=== PATIENT | female | born 1950 | race Caucasian/White ===

== ENCOUNTER → 2020-07-20 12:04 | Outpatient (CLI) | payer MEDICARE, SELFPAY ==
--- NOTE | ~2020-07-20 | MM_ITS ---
EXAMINATION: MM screening phong BI w rachel HISTORY: Screening TECHNIQUE: Craniocaudal and mediolateral oblique 3-D tomosynthesis images were obtained and synthetic 2-D images were generated. CAD analysis was submitted and interpreted. COMPARISON: Comparison to multiple prior studies sequentially, with oldest reviewed study dated 05/31. BREAST PARENCHYMAL COMPOSITION: There are scattered areas of fibroglandular density. FINDINGS: There is no evidence of suspicious mass, calcification, or architectural distortion to sugg est malignancy in either breast. There has been no suspicious interval change. IMPRESSION: 1. No mammographic evidence of malignancy. 2. Recommend routine screening mammography in one year. BI-RADS Category 1: Negative Reviewed, dictated and finalized at location A. F DEVELOPMENT NURSE
== END ==
PROVIDERS: PCP Family Medicine; Visit Provider Family Medicine
DX: Z12.31 Encounter for screening mammogram for malignant neoplasm of breast (principal)
CPT/HCPCS: 77063; 77067

== ENCOUNTER → 2021-07-23 10:50 | Outpatient (CLI) | payer MEDICARE, SELFPAY ==
--- NOTE | ~2021-07-23 | DEXA_ITS ---
Bone Density Report Name: Lisa Barroso Age: 70 Sex: Female Ethnicity: White Date of : 1950 Indication: osteopenia; hysterectomy; postmenopausal Referring Provider: Rios Kline Study: Bone densitometry was performed. Exam Date: July 23, 2021 Accession number: [id number] Bone Density: Region BMD T-score Z-score Classification AP Spine (L1, L4) 0.835 -1.8 0.4 Osteopenia Femoral Neck (Left) 0.631 -2.0 -0.1 Osteopenia Total Hip (Left) 0.922 -0.2 1.4 Normal Femoral Neck (Right) 0.711 -1.2 0.7 Osteopenia Total Hip (Right) 0.900 -0.3 1.3 Normal Total Hip Mean 0.911 -0.3 1.4 Normal World Health Organization criteria for BMD impression classify patients as: Normal (T-score at or above -1.0), Osteopenia (T-score between -1.0 and -2.5), or Osteoporosis (T-score at or below -2.5). 10-year Fracture Risk(1): Major Osteoporotic Fracture 11% Hip Fracture 2.2% Reported Risk Factors: [place] (), Neck BMD=0.631, BMI=32.2 (1) FRAX(R) Version 3.08. Fracture probability calculated for an untreated patient. Fracture probability may be lower if the patient has received treatment. Previous Exams: Region Exam Age BMD T-score BMD Change BMD Change Date g/cm2 vs Baseline vs Previous AP Spine(L1, L4) 07/23/2021 70 0.835 -1.8 0.011 0.011 06/15/2018 67 0.825 -1.9 Total Hip(Left) 07/23/2021 70 0.922 -0.2 -0.024 -0.024 06/15/2018 67 0.946 0.0 Total Hip(Right) 07/23/2021 70 0.900 -0.3 -0.043* -0.043* 06/15/2018 67 0.944 0.0 *Denotes significance at 95% confidence level, LSC for AP Spine = 0.022 g/cm2, LSC for Total Hip = 0.027 g/cm2 Clinical Information Provided by Patient: Has the following medical conditions: Hysterectomy Patient maximum height was 63 Menopause Age: 31 Does not regularly consume dairy products Drinks caffeinated beverages Onset of menses at age 11 Number of children 2 Impression: The patient has low bone mass, based on the Left Femoral Neck T-score. The patient has an estimated ten-year risk of hip fracture of 2.2% and an estimated ten-year risk of major fracture of 11%, based on the WHO FRAX algorithm. The BMD for the Total Hip(Right) decreased, changing by -0.043 since the last DXA exam. Discussion: BONE DENSITY IS LOW AT ONE OR MORE SKELETAL SITES. This patient's lowest T-score is low at one or more skeletal sites. It meets the World He
== END ==
PROVIDERS: PCP Family Medicine; Visit Provider Family Medicine
DX: Z78.0 Asymptomatic menopausal state (principal); M85.88 Other specified disorders of bone density and structure, other site; M85.852 Other specified disorders of bone density and structure, left thigh; M85.851 Other specified disorders of bone density and structure, right thigh
CPT/HCPCS: 77080

== ENCOUNTER → 2021-08-21 11:31 | Outpatient (CLI) | payer MEDICARE, SELFPAY ==
--- NOTE | ~2021-08-21 | MM_ITS ---
EXAMINATION: MM screening phong BI w rachel HISTORY: Screening TECHNIQUE: Craniocaudal and mediolateral oblique 3-D tomosynthesis images were obtained and synthetic 2-D images were generated. CAD analysis was submitted and interpreted. COMPARISON: Comparison to multiple prior studies sequentially, with oldest reviewed study dated 05/31. BREAST PARENCHYMAL COMPOSITION: There are scattered areas of fibroglandular density. FINDINGS: There is no evidence of suspicious mass, calcification, or architectural distortion to sugg est malignancy in either breast. There has been no suspicious interval change. IMPRESSION: 1. No mammographic evidence of malignancy. 2. Recommend routine screening mammography in one year. BI-RADS Category 1: Negative Reviewed, dictated and finalized at location A. ULAR SAWYER STONE
== END ==
PROVIDERS: PCP Family Medicine; Visit Provider Family Medicine
DX: Z12.31 Encounter for screening mammogram for malignant neoplasm of breast (principal)
CPT/HCPCS: 77063; 77067

== ENCOUNTER 2021-08-29 01:13 | Day surgery (SDC) | payer MEDICARE, SELFPAY ==
[2021-08-28 14:02] VITALS: BMI 30.8
[2021-08-29] VITALS (12 sets, daily range): BP systolic 112–157; BP diastolic 45–87; PULSE 72–125; RESP 13–20; TEMP 36.7; O2SAT 94–98; BMI 30.8
[2021-08-29 07:34] LABS: Basophils Percent Auto 0.4 % (0.2-1.2); Eosinophils Absolute Auto 0.1 K/mm3 (0-0.3); Eosinophils Percent Auto 0.9 % (0-4.4); Hematocrit 41.2 % (37.0-47.0); Hemoglobin 13.7 g/dL (12.0-15.0); Immature Granulocyte Absolute 0.03 K/mm3 (0.00-0.031); Immature Granulocyte Percent A 0.3 % (0-0.5); Lymphocytes Absolute Auto 3.19 K/mm3 (0.9-3.2); Mean Corpuscular HGB Conc 33.3 g/dl (32-36); Mean Corpuscular Hemoglobin 31.6 pg (26-34); Mean Corpuscular Volume 95.2 fl (80-100); Monocytes Absolute Auto 0.8 K/mm3 (0.1-0.6); Neutrophils Absolute Auto 5.8 K/mm3 (1.3-6.7); Neutrophils Percent Auto 58.4 % (45.5-73.1); Platelet Count Result 329 k/mm3 (150-375); Red Blood Count 4.33 M/mm3 (4.2-5.4); Red Cell Distribution Width 12.2 % (11.5-14.5)
[2021-08-29 07:47] LABS: Anion Gap 9 mmol/L (8-16); Blood Urea Nitrogen 18 mg/dL (7-17); Calcium 10.1 mg/dL (8.4-10.2); Carbon Dioxide 27 mmol/L (22-30); Chloride 97 mmol/L (98-107); Estimated CRCL calculation 56 ml/min; Estimated Glomerular Filt Rate > 60; Glucose 158 mg/dL (65-110); Potassium 4.1 mmol/L (3.4-5.0); Sodium 133 mmol/L (137-145)
--- NOTE | 2021-08-29 08:44 | WPDHPUPDATE1 ---
History and Physical Update Update Date/Time: 08/29/21 08:44 History and Physical has been reviewed, including an updated exam of the patient. There are NO changes in the patient's condition. Risks, benefits, and alternatives have been discussed and questions answered. Patient agrees to proceed with procedure.
--- NOTE | 2021-08-29 08:44 | WPDMODSED ---
Moderate Sedation Note-Pt Data Patient Data Diagnosis: Abnormal stress test Present Complaint: none Procedure to be performed/Plan: left heart catheterization with selective left and right coronary angiography with left ventriculography and hemodynamics and possible percutaneous intervention and stent implantation. Allergies Allergy/AdvReac Type Severity Reaction Status Date / Time hydrocodone AdvReac Mild Nausea and Verified 08/28/21 13:59 Vomiting Home Medications Medication Instructions Recorded Confirmed Type indapamide 2.5 mg tablet 2.5 mg PO DAILY #90 tablet 05/11/21 08/28/21 Rx metformin 500 mg tablet,extended 2,000 mg PO QPM #360 tablet 05/11/21 08/28/21 Rx release 24 hr pravastatin 20 mg tablet 20 mg PO DAILY #90 tablet 05/11/21 08/28/21 Rx valsartan 80 mg tablet 80 mg PO DAILY #90 tablet 05/11/21 08/28/21 Rx aspirin 81 mg PO DAILY 08/28/21 08/29/21 History diltiazem HCl 120 mg PO DAILY 08/28/21 08/28/21 History Current Medications: Active Medications Sodium Chloride (Normal Saline Iv) 500 mls @ 100 mls/hr IV CONT .Q5H NAVIN Sedation/Anesthesia: No previous sedation/anesthesia problems (including family history). [facility] Past Medical History Medical History Cough Fatty liver HLD (hyperlipidemia) HTN (hypertension), benign MEETA (obstructive sleep apnea) Type 2 diabetes mellitus without complications Family History Family History Mother Diabetes mellitus Hypertension Family history of cardiovascular disease Father Family history of cardiovascular disease Social History Social History Smoking status: Never smoker Second hand tobacco smoke exposure: No Alcohol intake: current Drinks per week: 0 Alcohol use details: rare Substance use: never Substance use type: does not use Living arrangements: with family Gender identity (if verbalized by the patient): Female Sexual Orientation (if Verbalized by the Patient): Straight or Heterosexual Mod Sed Physical Exam Physical Exam Pre Procedural Exam: Normal: Appearance, Eyes, Ears, Nose, Neck ( supple, normal range of motion), Throat ( posterior hypopharynx clear, nonerythematous), Airway ( normal anatomy, no obstruction), Lungs ( Clear to auscultation bilaterally), Heart Size, Heart Rate, Heart Rhythm, Neuro Exam, Abdomen, Liver, Extremities and Skin Hours since solid foods: 12 Hours since liquid intake: 12 Mallampati Classification: class III Internal Medicine - PN: Obj Da Vital Signs Vital Signs: Vital Signs - 24 hr 08/29/21 07:29 Temperature 36.7 C Respiratory Rate 13 Blood Pressure 157/64 H Pulse Oximetry 98 Meds/Results Medications: Active Medications Generic Name Dose Route Start Last Admin Trade Name Freq PRN Reason Stop Dose Admin Sodium Chloride 500 mls @ 100 mls/hr 08/29/21 07:00 Normal Saline Iv IV CONT .Q5H NAVIN Labs CBC & Chem 7: 08/29/21 07:18 08/29/21 07:18 Labs: Laboratory Results - last 24 hr 08/29/21 08/29/21 07:18 07:18 WBC 10.0 RBC 4.33 Hgb 13.7 Hct 41.2 MCV 95.2 MCH 31.6 MCHC 33.3 RDW 12.2 Plt Count 329 MPV 10.0 Immature Gran % (Auto) 0.3 Neut % (Auto) 58.4 Lymph % (Auto) 32.0 [place] % (Auto) 8.0 Eos % (Auto) 0.9 Baso % (Auto) 0.4 Lymph # (Auto) 3.19 [place] # (Auto) 0.8 H Eos # (Auto) 0.1 Baso # (Auto) 0.0 Abs Immat Gran (auto) 0.03 Absolute Neuts (auto) 5.8 Absolute Nucleated RBC 0.0 Nucleated RBC % 0.0 Sodium 133 L Potassium 4.1 Chloride 97 L Carbon Dioxide 27 Anion Gap 9 BUN 18 H Creatinine 0.80 Estim Creat Clear Calc 56 Estimated GFR > 60 Glucose 158 H Calcium 10.1 ASA Classification/Sedation ASA Classification/Sedation ASA Class: III Emergent: No Risks: Risks, benefits a
--- NOTE | 2021-08-29 08:46 | PM.OP ---
Procedure Note - Brief Procedure Note - Brief Date of procedure: 08/29/21 Pre-op diagnosis: abn stress test and echo Post-op diagnosis: same Procedure performed: left heart catheterization with selective left and right coronary angiography with left ventriculography and hemodynamics Description of procedure: BRIEF HISTORY OF PRESENT ILLNESS: Patient is a pleasant 70-year-old female with a past medical history significant for hypertension, dyslipidemia, diabetes mellitus, family history premature atherosclerosis was seen for abnormal EKG who underwent noninvasive ischemic testing which revealed moderate size mild anteroseptal mega-infarct ischemia in the mid anteroseptal wall with fixed small mild apical anterior infarction without ischemia, EF 67% hypokinesis of the mid anterior, mid anteroseptal and apical anterior apical septal parr referred for left heart catheterization for delineation of her coronary anatomy. PROCEDURES PERFORMED: 1. Left heart catheterization 2. Selective left and right coronary angiography 3. Left ventriculography and hemodynamics 4. Moderate/conscious sedation administration CATHETERS UTILIZED: Left coronary system- 5 Burkinan JL4 catheter Right coronary system- 5 Burkinan JR4 catheter Left ventriculography and hemodynamics- 5 Burkinan angled pigtail catheter PROCEDURE IN DETAIL: After verbal and written informed consent was obtained the patient, risks, benefits, and alternatives explained in detail the patient agreed to proceed with the plan of care as outlined above. The patient was subsequently brought to the cardiac catheterization lab, placed on the cardiac catheterization table, and prepped and draped in the usual sterile fashion. Utilizing approximately 17cc of 1% subcutaneous Lidocaine, the right groin was then locally anesthetized. Utilizing the modified Seldinger technique, a 5 Burkinan arterial vascular access sheath was inserted in the right common femoral artery easily and without complications. Through this access, coronary angiography was subsequently obtained in multiple standard re-projections. Following this, a 5 Burkinan angled pigtail catheter was advanced retrograde across aortic valve into the cavity of the left ventricle. Left ventriculography was performed and pullback across aortic valve was subsequently recorded. The vascular access sheath and angiographic catheters were flushed before and after catheter exchanges. At the conclusion of the diagnostic portion of the procedure, all angiographic guidewires and catheters were removed and the 5 Burkinan arterial vascular access sheath was then pulled and satisfactory hemostasis was achieved using manual compression. There no complications noted at the conclusion of the diagnostic portion of the study. MODERATE SEDATION/ANESTHESIA ADMINISTRATION: Patient reports no prior problems with sedation/anesthesia. Please see pre-sedation noted for physical examination documentation. Sedation start time was 0853 and end time was 0929 for a total intra-service/procedure face-face time of 36 minutes. A total of 2 mg intravenous Versed and a total of 50 mcg intravenous Fentanyl in multiple divided doses was administered for moderate sedation. Moderate sedation was administered by qualified/certified observer Kacey Sheppard RN under my supervision with intra-procedure [id number] observation and management throughout the entirety of the procedure. There were no other issues or complications and patient tolerated the procedure well. See post-anesthesia documentation. Implants: N/A Anesthesia: local and other ( moderate/conscious sedation) Surgeon: Jon Bird MD Drains: No Packing: No Pathology: none sent Complications: No immediate complications Condition: stable Findings: CORONARY ANGIOGRAPHY: The LEFT MAIN arose from the left coronary cusp and revealed a smooth 10% distal stenosis. The left main then trifurcated into the left anterior descendin
--- NOTE | 2021-08-29 14:05 | SUR.PHASEII ---
Pt assisted up to chair. No change in vital signs or groins site.
--- NOTE | 2021-08-29 15:14 | SUR.PHASEII ---
1420-pt ambulated into bathroom. Pt continues to do well. okay for discharge 1430- Discharge instruction reviewed with pt and . All questions answered. Escorted off floor via wheelchair.
== END 2021-08-29 15:17 | disposition home or self-care (01) ==
PROVIDERS: PCP Family Medicine; Visit Provider Internal Medicine Cardiovascular Disease
PROC: 4A023N7 Measurement of Cardiac Sampling and Pressure, Left Heart, Percutaneous Approach (ICD-10-PCS; CPT 93452; principal; 2021-08-29 08:30)
DX: I25.10 Atherosclerotic heart disease of native coronary artery without angina pectoris (principal); R94.39 Abnormal result of other cardiovascular function study; R93.1 Abnormal findings on diagnostic imaging of heart and coronary circulation; I10 Essential (primary) hypertension; E78.5 Hyperlipidemia, unspecified; E11.9 Type 2 diabetes mellitus without complications; K76.0 Fatty (change of) liver, not elsewhere classified; G47.33 Obstructive sleep apnea (adult) (pediatric); Z82.49 Family history of ischemic heart disease and other diseases of the circulatory system; Z79.84 Long term (current) use of oral hypoglycemic drugs; Z79.82 Long term (current) use of aspirin
CPT/HCPCS: 36415; 80048; 85025; 93458; C1887; C1894; J0461; J1644; J2250; J3010; J7040

== ENCOUNTER 2021-12-06 07:53 | Outpatient (RCR) | payer MEDICARE, SELFPAY ==
[2021-12-06] MEDS: ACETAMINOPHEN 325 MG TABLET 650 MG PO (13:59)
[2021-12-06] MEDS: FAMOTIDINE 20 MG TABLET PO (13:59)
[2021-12-06] MEDS: diphenhydrAMINE HCl CAP 25 MG CAPSULE PO (13:59)
[2021-12-06 14:59] VITALS: BP 156/79; PULSE 101; RESP 18; TEMP 36.6; O2SAT 98
[2021-12-06 16:21] VITALS: BP 147/81; PULSE 102; RESP 18; O2SAT 98
== END 2021-12-06 16:00 ==
LOC: AMCINF 07:53
PROVIDERS: PCP Physician Assistant; Referring Provider Physician Assistant; Visit Provider Internal Medicine Hematology & Oncology
DX: U07.1 COVID-19 (principal); I10 Essential (primary) hypertension; I25.10 Atherosclerotic heart disease of native coronary artery without angina pectoris; E11.9 Type 2 diabetes mellitus without complications
CPT/HCPCS: A9270; M0247; Q0247

== ENCOUNTER → 2022-09-10 12:33 | Outpatient (CLI) | payer MEDICARE, SELFPAY ==
--- NOTE | ~2022-09-10 | MM_ITS ---
EXAMINATION: MM screening phong BI w rachel HISTORY: Screening mammogram TECHNIQUE: Craniocaudal and mediolateral oblique 3-D tomosynthesis images were obtained and synthetic 2-D images were generated. CAD analysis was submitted and interpreted. COMPARISON: 08/21/2021, 07/20/2020, 07/07/2019 bilateral screening mammogram examinations BREAST PARENCHYMAL COMPOSITION: There are scattered areas of fibroglandular density. FINDINGS: Scattered bilateral benign calcifications. There is no evidence of suspicious mass, calcifi cation, or architectural distortion to suggest malignancy in either breast. There has been no suspici ous interval change. IMPRESSION: 1. No mammographic evidence of malignancy. 2. Recommend routine screening mammography in one year. BI-RADS Category 2: Benign finding(s). Reviewed, dictated and finalized at location A. ESS INSPECTOR
== END ==
PROVIDERS: PCP Family Medicine; Visit Provider Family Medicine
DX: Z12.31 Encounter for screening mammogram for malignant neoplasm of breast (principal)
CPT/HCPCS: 77063; 77067

== ENCOUNTER 2022-10-08 20:48 | Inpatient (IN) | payer MEDICARE, SELFPAY ==
[2022-10-08] VITALS (8 sets, daily range): BP systolic 148–166; BP diastolic 64–94; PULSE 88–103; RESP 14–23; TEMP 36.7; O2SAT 97–99
--- NOTE | ~2022-10-08 | XR_ITS ---
EXAMINATION: XR chest 2V Exam Date/Time: 10/08/2022 21:28 MEDICAL RECORDS CUSTODIAN HISTORY: SOB, chest pain x2 hrs. hx cad, htn Comparison: 11/16/2014. RESULT: Lines, tubes, and devices: None. Lungs and pleura: Background mild senescent change. Mildly increased peripheral reticular opacities and cuffing. Cardiomediastinal silhouette: Stable. Other: No acute osseous or upper abdominal finding. IMPRESSION: Mild interstitial edema. Reviewed, dictated and finalized at location K. CAL RECORDS CUSTODIAN IMPRESSION: Mild interstitial edema.
--- NOTE | 2022-10-08 20:48 | ECG_ITS ---
Measurements Intervals Kamuela Rate: 86 P: 58 MS: 182 QRS: -5 QRSD: 150 T: 58 QT: 390 QTc: 468 Interpretive Statements SINUS RHYTHM LEFT BUNDLE BRANCH BLOCK ABNORMAL ECG NO PREVIOUS ECG AVAILABLE FOR COMPARISON Electronically Signed On 10-09-2022 6:17:51 LABOR ARBITRATOR by Timbo Talbert D.O.
[2022-10-08 22:04] LABS: Basophils Absolute Auto 0.1 K/mm3 (0.0-0.1); Basophils Percent Auto 0.4 % (0.2-1.2); Eosinophils Absolute Auto 0.1 K/mm3 (0-0.3); Eosinophils Percent Auto 0.4 % (0-4.4); Hematocrit 38.9 % (37.0-47.0); Hemoglobin 12.9 g/dL (12.0-15.0); Immature Granulocyte Absolute 0.07 K/mm3 (0.00-0.031); Immature Granulocyte Percent A 0.5 % (0-0.5); Lymphocytes Absolute Auto 1.94 K/mm3 (0.9-3.2); Mean Corpuscular HGB Conc 33.2 g/dl (32-36); Mean Corpuscular Hemoglobin 31.3 pg (26-34); Mean Corpuscular Volume 94.4 fl (80-100); Monocytes Absolute Auto 1.1 K/mm3 (0.1-0.6); Monocytes Percent Auto 8.1 % (2.6-8.5); Neutrophils Absolute Auto 10.6 K/mm3 (1.3-6.7); Neutrophils Percent Auto 76.6 % (45.5-73.1); Platelet Count Result 256 k/mm3 (150-375); Red Blood Count 4.12 M/mm3 (4.2-5.4); Red Cell Distribution Width 12.4 % (11.5-14.5); White Blood Count 13.9 K/mm3 (4.5-10.0)
[2022-10-08 22:16] LABS: Alanine Aminotransferase 38 U/L (6-35); Albumin Level 4.2 g/dL (3.5-5.1); Alkaline Phosphatase 74 U/L (38-126); Anion Gap 9 mmol/L (8-16); Aspartate Amino Transferase 44 U/L (14-36); Bilirubin,Total 0.4 mg/dL (0.2-1.3); Blood Urea Nitrogen 14 mg/dL (7-17); Calcium 9.6 mg/dL (8.4-10.2); Carbon Dioxide 28 mmol/L (22-30); Chloride 100 mmol/L (98-107); Estimated Glomerular Filt Rate > 60; Glucose 183 mg/dL (65-110); INR 0.9; Lipase 214 U/L (23-300); Potassium 4.1 mmol/L (3.4-5.0); Prothrombin Time 12.2 Seconds (11.1-14.7); Sodium 137 mmol/L (137-145)
--- NOTE | 2022-10-08 22:18 | ED.CHESTPAIN ---
HPI - Chest Pain General Chief Complaint: Chest Pain Stated Complaint: chest pain Time Seen by Provider: 10/08/22 21:41 History of Present Illness HPI narrative: Patient is 72-year-old female who presents ER with chest pain. It occurred around 7 PM. Lasted for an hour and a half. Resolved to half hour after taking famotidine. Pressure on some of her chest. Associate with nausea. No exertional component. No epigastric pain. She did report some belching. Has history of coronary artery disease that did not require intervention on a cardiac catheterization in 2020. No fevers or chills or sweats. Scheduled for surgery this week on her shoulder. Related Data Home Medications Medication Instructions Recorded Confirmed aspirin 81 mg tablet 81 mg PO DAILY 08/28/21 10/03/22 acetaminophen 325 mg tablet 650 mg PO PRN PRN Pain 10/03/22 10/03/22 (Tylenol) Allergies Allergy/AdvReac Type Severity Reaction Status Date / Time hydrocodone AdvReac Mild Nausea and Verified 10/03/22 15:15 Vomiting Review of Systems Review of Systems: All systems reviewed & are unremarkable except as noted in HPI and below Constitutional: Constitutional: Denies chills, Denies fatigue and Denies fever(s) ENT: Denies dysphagia and Denies sore throat Cardiovascular: Cardiovascular: Reports chest pain, Denies rapid heart rate and Denies radiating jaw, neck or arm pain Respiratory: Respiratory: Denies cough, Denies dyspnea and Denies wheezing Gastrointestinal: Gastrointestinal: Denies abdominal pain, Denies diarrhea, Reports nausea and Denies vomiting PMFSH Past Medical History Medical History CAD (coronary artery disease) Cough Fatty liver History of stress test (~2020) HLD (hyperlipidemia) HTN (hypertension), benign Obesity MEETA (obstructive sleep apnea) Type 2 diabetes mellitus without complications Surgical History Surgical History History of foot surgery (~2009) History of hernia surgery History of hysterectomy (~1981) History of knee surgery (~2015) Family History Family History Mother Diabetes mellitus Hypertension Family history of cardiovascular disease Acute myocardial infarction Father Family history of cardiovascular disease CHF (congestive heart failure) Social History Social History (Updated 09/25/22 @ 14:43 by Josette Contreras MA) Smoking status: Never smoker Second hand tobacco smoke exposure: No Alcohol intake: current Drinks per week: 0 Alcohol use details: rare Substance use: never Substance use type: does not use Lack of Transportation: No Lack of Food: Never True Current Housing: I Have Housing Concerned About Future Housing: No Difficulty Paying Gas/Electric Bills: No Difficulty Paying for Meds: No Currently Unemployed: No Education: Bachelor's Degree Difficulty w/ Childcare or Family Care: No Living arrangements: with family Occupation/Education: retired Gender identity (if verbalized by the patient): Female Sexual Orientation (if Verbalized by the Patient): Straight or Heterosexual Spiritual care concerns: No Exam Narrative: GENERAL: Well-appearing, well-nourished, and in no acute distress. HEAD: Normocephalic, atraumatic. ENT: Mucous membranes moist. CHEST: Clear to auscultation. No respiratory distress. HEART: Regular rate and rhythm. Normal peripheral pulses. ABDOMEN: Soft, nontender, nondistended. EXTREMITIES: Normal range of motion. No edema. NEURO: Alert and oriented x3. PSYCH: Normal mood and affect. Course Course Emergency Course: I personally reviewed previous PCP note as well as previous cardiology cardiac catheterization. Chart review also shows old left bundle branch block. Reevaluation(s) Reevaluation #1: Discussed with cardiology Dr. Bernal. Recommends admi
[2022-10-08 22:27] LABS: Troponin I 0.024 ng/mL (0.000-0.034)
[2022-10-09] VITALS (11 sets, daily range): BP systolic 136–170; BP diastolic 59–97; PULSE 68–128; RESP 16–21; TEMP 36.2–36.7; O2SAT 94–99; BMI 31.3
--- NOTE | 2022-10-09 00:58 | PM.IMHP ---
H&P: HPI History of Present Illness Date/Time: 10/09/22 00:58 Chief Complaint: Chest pain Narrative: 72 years old lady with a history of CAD, multiple vessel stenosis on previous cardiac catheterization, without stent or CABG, hypertension, hyperlipidemia, type 2 diabetes, presented ED with a chief complaint of chest pain. Patient started having chest pain about 7:00 p.m. yesterday, without radiation. Patient also denies short of breath, palpitation, fever, chills, cough, abdominal pain, nausea vomiting diarrhea dysuria. Patient denies headache, palpitation, focal weakness. Patient comes to the ER for evaluation and treatment. In the ER, patient was found to have left bundle block, no change from previous EKG. Troponin is negative. ER physician has consulted insurance account assistant, cleared the patient for further evaluation and management. Review of Systems Review of Systems: ROS negative except above PMFSH Past Medical History Medical History CAD (coronary artery disease) Cough Fatty liver History of stress test (~2020) HLD (hyperlipidemia) HTN (hypertension), benign Obesity MEETA (obstructive sleep apnea) Type 2 diabetes mellitus without complications Surgical History Surgical History History of foot surgery (~2009) History of hernia surgery History of hysterectomy (~1981) History of knee surgery (~2015) Family History Family History Mother Diabetes mellitus Hypertension Family history of cardiovascular disease Acute myocardial infarction Father Family history of cardiovascular disease CHF (congestive heart failure) Social History Social History (Updated 09/25/22 @ 14:43 by Josette Contreras MA) Smoking status: Never smoker Second hand tobacco smoke exposure: No Alcohol intake: current Drinks per week: 0 Alcohol use details: rare Substance use: never Substance use type: does not use Lack of Transportation: No Lack of Food: Never True Current Housing: I Have Housing Concerned About Future Housing: No Difficulty Paying Gas/Electric Bills: No Difficulty Paying for Meds: No Currently Unemployed: No Education: Bachelor's Degree Difficulty w/ Childcare or Family Care: No Living arrangements: with family Occupation/Education: retired Gender identity (if verbalized by the patient): Female Sexual Orientation (if Verbalized by the Patient): Straight or Heterosexual Spiritual care concerns: No Meds Home Medications and Allergies Home Medications Medication Instructions Recorded Confirmed Type aspirin 81 mg tablet 81 mg PO DAILY 08/28/21 10/03/22 History blood sugar diagnostic (Blood #100 ea 01/14/22 09/25/22 Rx Glucose Test strips) indapamide 2.5 mg tablet 2.5 mg PO DAILY #90 tabs 05/15/22 10/03/22 Rx metformin 500 mg tablet,extended 2,000 mg PO QPM #360 tabs 05/15/22 10/03/22 Rx release 24 hr valsartan 80 mg tablet 80 mg PO DAILY #90 tabs 05/15/22 10/03/22 Rx diltiazem HCl 120 mg tablet 120 mg PO BID #180 tabs 05/22/22 10/03/22 Rx tramadol 50 mg tablet 50 mg PO Q6H PRN pain #30 tabs 09/02/22 10/03/22 Rx linagliptin 5 mg tablet (Tradjenta) 5 mg PO QAM #30 tabs 09/17/22 10/03/22 Rx rosuvastatin 5 mg tablet 5 mg PO DAILY #30 tabs 10/01/22 10/03/22 Rx acetaminophen 325 mg tablet 650 mg PO PRN PRN Pain 10/03/22 10/03/22 History (Tylenol) Allergies Allergy/AdvReac Type Severity Reaction Status Date / Time hydrocodone AdvReac Mild Nausea and Verified 10/03/22 15:15 Vomiting Vital Signs Vital Signs - 24 hr 10/08/22 20:50 10/08/22 22:03 10/08/22 22:16 Temperature 98.0 F Pulse Rate 88 97 94 Respiratory Rate 16 23 H 14 Blood Pressure 148/71 H 166/94 H 165/79 H Pulse Oximetry 98 99 99 Oxygen Delivery Room Air 10/08/22 22:31 10/08/22 22:46 10/08/22 23:01 Temperature Pulse R
[2022-10-09 01:07] LABS: Influenza A QL RT-PCR Negative (Negative); Influenza B QL RT-PCR Negative (Negative); SARS-CoV-2 RNA PCR Negative
--- NOTE | 2022-10-09 01:14 | ECHO_ITS ---
Patient Info Name: Lisa Barroso Age: 72 years : 1950 Gender: Female Ht: 63 in Wt: 176 lbs BSA: 1.91 m2 HR: 77 bpm BP: 136 / 59 mmHg Heart Rhythm: Sinus Rhythm, Left Bundle Branch Block Exam Date: 10/09/2022 2:16 PM Exam Location: [facility] Patient Status: Inpatient Admit Date: 10/09/2022 Staff Ordering Physician: Apolonia Pal MD Management Developer: Preston Fatima, WILLIAM, RT Attending Provider: Apolonia Pal MD Exam Type: CA echo dop color flow w con Study Info Indications R42 - Dizziness and giddiness Complete two-dimensional, color flow and Doppler transthoracic echocardiogram is performed with contrast to opacify the left ventricle and to improve the deliniation of the left ventricle endocardial borders. Summary 1. Left ventricular chamber dimension is normal. 2. Left ventricular septal wall motion is abnormal with septal motion related to bundle branch block. 3. There is mildly increased left ventricular wall thickness. 4. Left ventricular systolic function is at lower limits of normal, estimated at 50-55%. 5. Right ventricular systolic function is normal. 6. There is mild tricuspid valve regurgitation. Left Ventricle Left ventricular systolic function is at lower limits of normal, estimated at 50-55%. Left ventricular chamber dimension is normal. There is mildly increased left ventricular wall thickness. Left ventricular septal wall motion is abnormal with septal motion related to bundle branch block. Right Ventricle Right ventricular chamber dimension is normal. Right ventricular systolic function is normal. Left Atria Left atrial chamber dimension is normal. Right Atria Right atrial chamber dimension is normal. Atrial Septum Intact interatrial septum visualized by color flow imaging. Aortic Valve The aortic valve is not well visualized. There is no aortic valve stenosis. There is no aortic valve regurgitation. There is mild aortic valve calcification. Pulmonic Valve The pulmonic valve is not well visualized. Mitral Valve The mitral valve has normal leaflets. There is no mitral valve stenosis. There is trace mitral valve regurgitation. Tricuspid Valve There is no significant tricuspid valve stenosis. There is mild tricuspid valve regurgitation. Pericardium/Pleural There is small pericardial effusion. Inferior Vena Cava Normal inferior vena cava with >50% collapse upon inspiration consistent with normal right atrial pressure, 3 mmHg. Aorta The aortic root size at the sinus of Valsalva is normal. Left Ventricular Outflow Tract Name Value Normal LVOT 2D LVOT Diameter 1.87 cm LVOT Doppler LVOT Peak Gradient 3 mmHg LVOT Mean Gradient 2 mmHg LVOT VTI 14.92 cm LVOT VTI/AV VTI Ratio 0.76 LVOT Stroke Volume 41.00 ml LVOT CO 3.47 l/min LVOT CI 1.81 L/min/m2 Mitral Valve N
[2022-10-09] MEDS: ASPIRIN 81 MG CHEWABLE TABLET 324 MG PO (01:28)
[2022-10-09 01:37] LABS: Troponin I 0.136 ng/mL (0.000-0.034)
--- NOTE | 2022-10-09 02:01 | ADMGEN ---
This patient, Lisa Barroso, was admitted to IMU Room 205-02. Patient/family oriented to hospital policies and general routines including ID bracelet, bed and alarms, visiting hours, pain management, procedures, bathroom and other care routines, personal items, smoking policy, room service/diet, and visiting hours. Information on how to activate the Rapid Response Team has been discussed. Patient/Family are encouraged to report perceived risks to care and to ask questions if they do not understand what they are told or what they should do.
[2022-10-09] MEDS: ONDANSETRON INJ 4 MG/2 ML VIAL IV PUSH (02:50)
[2022-10-09] MEDS: HEPARIN SOD/D5W 100 UNITS/ML 25,000 UNITS/250 ML BAG 8 UNITS IV CONT (02:50)
[2022-10-09] MEDS: HEPARIN SODIUM 5,000 UNITS/ML VIAL 4000 UNITS IV PUSH ×2 (02:51→09:29)
[2022-10-09 03:52] LABS: Troponin I 0.242 ng/mL (0.000-0.034)
[2022-10-09] MEDS: VALSARTAN 80 MG TABLET 160 MG PO (08:30)
[2022-10-09] MEDS: ASPIRIN 81 MG ENTERIC TABLET PO (08:30)
[2022-10-09] MEDS: ROSUVASTATIN 10 MG TABLET PO (08:30)
[2022-10-09] MEDS: dilTIAZem HCL 60 MG TABLET 120 MG PO (08:30)
--- NOTE | 2022-10-09 09:04 | PM.CNCAR ---
Assessment and Plan Assessment and plan (1) NSTEMI (non-ST elevated myocardial infarction): Code(s): I21.4 - Non-ST elevation (NSTEMI) myocardial infarction Status: Acute (2) Chest pain: Code(s): R07.9 - Chest pain, unspecified Status: Acute (3) MEETA (obstructive sleep apnea): Code(s): G47.33 - Obstructive sleep apnea (adult) (pediatric) Status: Acute (4) Type 2 diabetes mellitus without complications: Code(s): E11.9 - Type 2 diabetes mellitus without complications Status: Acute (5) HTN (hypertension), benign: Code(s): I10 - Essential (primary) hypertension Status: Acute (6) HLD (hyperlipidemia): Code(s): E78.5 - Hyperlipidemia, unspecified Status: Acute (7) Fatty liver: Code(s): K76.0 - Fatty (change of) liver, not elsewhere classified Status: Acute (8) CAD (coronary artery disease): Code(s): I25.10 - Atherosclerotic heart disease of enterprise coronary artery without angina pectoris Status: Acute Plan Troponins are 0.024 --> 0.136 --> 0.242 EKG with LBBB. Will treat as NSTEMI. Continue with Heparin drip, ASA 81mg daily, statin. Discussed with the patient that management options are either to proceed with cardiac catheterization or medical management at this time since patient is no longer having chest pain. I did personally review her prior cardiac cath from 08/2021 which showed mild-moderate NOCAD with 10% distal LM, 60% ostial LAD, mid 50% LAD, and ostial 70% ramus disease. At this time, patient wishes to proceed with medical management first instead of invasive approach with cardiac cath. Therefore, will cancel NPO diet and allow her to eat. An echocardiogram is pending. Will start Plavix. Start Metoprolol. I did discuss with the patient that if she does have recurrence in chest pain, then it would be recommended to proceed with cardiac cath at that time. If she no longer has chest pain, can continue with medical management. Patient is scheduled for rotator cuff surgery tomorrow 10/10. Given her NSTEMI, I do not recommend proceeding with her elective surgery as planned. Once patient recovers from NSTEMI, she will need outpatient follow-up to re-evaluate timing of surgery in the future. Patient last saw Dr. Bird in clinic 10/01/2022. Next appointment is in March. I will have our office move up her appointment and schedule her for a hospital follow-up visit. History of Present Illness History of Present Illness Consult date/time: 10/09/22 09:04 Requesting physician: Eric Mondragon MD Consult reason: chest pain Reason For Visit: chest pain Narrative: We are consulted for chest pain. This is a patient of Dr. Bird's. She is a 72-year-old female with a history of coronary artery disease, hypertension, diabetes mellitus, MEETA on CPAP, hyperlipidemia, remote history of tobacco abuse, fatty liver disease who presented to the ER with chest pain. Patient reports that she developed central chest pain yesterday evening around 7PM while sitting at rest and talking to her daughter. No radiation of pain. No other associated symptoms. Patient states pain lasted for about an hour and a half. Resolved after half hour after taking famotidine. Troponins are 0.024 --> 0.136 --> 0.242 EKG with LBBB. CXR with mild interstitial edema. Patient reports that she has not had any more recurrences of her chest pain. She feels well this morning. Is scheduled for rotator cuff surgery tomorrow. Review of Systems Review of Systems: 12-point ROS obtained. Negative, unless stated in HPI. [facility] Past Medical History Medical History CAD (coronary artery disease) Cough Fatty liver History of stress test (~2020) HLD (hyperlipidemia) HTN (hypertension), benign Obesity MEETA (obstructive sleep apnea) Type 2 diabetes mellitus without complications Surgical History Surgical History (Reviewed 10/09
[2022-10-09 09:20] LABS: Partial Thromboplastin Time 40.1 SECONDS (22.3-36.8)
[2022-10-09 09:34] LABS: Troponin I 0.275 ng/mL (0.000-0.034)
[2022-10-09] MEDS: CLOPIDOGREL BISULFATE 300 MG TABLET PO (09:47)
[2022-10-09] MEDS: METOPROLOL SUCCINATE EXT REL 25 MG TABCR PO (09:47)
--- NOTE | 2022-10-09 09:52 | PC.NURSE ---
Dr.Kyle Washington's office called to notify pt is hospitalized and will not be able to get surgery tomorrow as scheduled.
[2022-10-09 12:26] LABS: Troponin I 0.239 ng/mL (0.000-0.034)
[2022-10-09] MEDS: PERFLUTREN LIPID MICROSPHERES 1.5 ML VIAL DILUTED TO 10 ML TOTAL VOLUME IV PUSH (14:31)
--- NOTE | 2022-10-09 14:31 | IVDEFINITY ---
Prior to administration of IV Definity the patient was educated on the risks and benefits of the imaging enhancing agent including potential adverse side effects. The patient verbalized understanding. Allergies were verified. No exclusion criteria were identified and at least one of the following inclusion criteria were met: 1) physician request, 2) patient technically difficult to image (per the [place] [employer]chocardi[employer] guidelines of two or more segments not discernable within the apical view), or 3) questionable left ventricular function. ?
[2022-10-09 15:48] LABS: Partial Thromboplastin Time 97.2 SECONDS (22.3-36.8)
[2022-10-09 16:00] LABS: Troponin I 0.196 ng/mL (0.000-0.034)
--- NOTE | 2022-10-09 16:25 | PM.DS ---
DS: Admitting Diagnosis Discharge Date 10/09/2022 Admitting Diagnosis chest pain DS: Discharge Diagnosis Discharge Diagnosis (1) Chest pain: Code(s): R07.9 - Chest pain, unspecified Status: Acute Assessment and Plan: Chest pain Possible unstable angina History of CAD without stent CABG but multivessel stenosis Start aspirin 325 mg once, 81 mg daily p.o. nitroglycerin sublingual p.r.n. Follow-up echocardiogram telemetry monitoring Consult Cardiology for evaluation and management (2) Type 2 diabetes mellitus without complications: Code(s): E11.9 - Type 2 diabetes mellitus without complications Status: Acute Assessment and Plan: Hold metformin Started insulin sliding scale (3) MEETA (obstructive sleep apnea): Code(s): G47.33 - Obstructive sleep apnea (adult) (pediatric) Status: Acute (4) HTN (hypertension), benign: Code(s): I10 - Essential (primary) hypertension Status: Acute Assessment and Plan: Continue losartan 80 mg daily p.o. Cardizem 120 mg b.i.d. p.o. (5) HLD (hyperlipidemia): Code(s): E78.5 - Hyperlipidemia, unspecified Status: Acute Assessment and Plan: Continue Crestor 5 mg daily p.o. DS: Summary Hospital Course Reason for hospitalization: Chest pain Narrative: 72 years old lady with a history of CAD, multiple vessel stenosis on previous cardiac catheterization, without stent or CABG, hypertension, hyperlipidemia, type 2 diabetes, presented ED with a chief complaint of chest pain.? Patient started having chest pain about 7:00 p.m. yesterday, without radiation.? Patient also denies short of breath, palpitation, fever, chills, cough, abdominal pain, nausea vomiting diarrhea dysuria.? Patient denies headache, palpitation, focal weakness.? Patient comes to the ER for evaluation and treatment.? In the ER, patient was found to have left bundle block, no change from previous EKG.? Troponin is negative.? ER physician has consulted fiber drier operator, cleared the patient for further evaluation and management. Hospital Course: 72-year-old female presented with chest pain with elevated throat EKG showing left bundle branch block patient was seen by Cardiology patient decided not to have cardiac catheterization and pursue medical management, patient be treated with dual anti-platelet therapy with Plavix and aspirin, and will follow up with Cardiology as outpatient and further recommendation to follow. Time Spent with Patient Time attestation: Total time spent providing and/or coordinating discharge services: Exam Narrative: GENERAL: Pleasant, in no acute distress. Well-nourished. - EYES: EOMI. Anicteric. - HENT: Moist mucous membranes. - LUNGS: Clear to auscultation bilaterally, no wheezing, rhonchi, or rales. - CARDIOVASCULAR: Regular rate and rhythm. No murmur. No JVD. - ABDOMEN: Soft, non-tender and non-distended. No palpable masses. - EXTREMITIES: No edema. Peripheral pulses 2+. Non-tender. - NEUROLOGIC: No focal neurological deficits. CN II-XII grossly intact. - PSYCHIATRIC: Awake, Alert and oriented x 3. Appropriate mood and affect. - SKIN: No rashes or lesions. Warm. - LYMPH: No cervical lymphadenopathy. DS: Data Data Completed and Pending Labs on day of discharge: Labs from last 24 hours 10/09/22 10/09/22 10/09/22 15:23 15:23 11:52 WBC RBC Hgb Hct MCV MCH MCHC RDW Plt Count MPV Immature Gran % (Auto) Neut % (Auto) Lymph % (Auto) Garrett % (Auto) Eos % (Auto) Baso % (Auto) Lymph # (Auto) Garrett # (Auto) Eos # (Auto) Baso # (Auto) Abs Immat Gran (auto) Absolute Neuts (auto) Absolute Nucleated RBC Nucleated RBC % PT INR APTT 97.2 H Sodium Potassium Chloride Carbon Dioxide Anion Gap BUN Creatinine Estim Creat Clear Calc Estimated GFR Glucose Calcium Total Bilirubin AST ALT Alkali
== END 2022-10-09 16:52 | disposition home or self-care (01) | DRG 282 ==
LOC: ANHED 10-09 00:53 → ANHIMU 10-09 01:29
PROVIDERS: Emergency Medicine; Internal Medicine; Internal Medicine Cardiovascular Disease; Admitting Provider Hospitalist; Emergency Provider Emergency Medicine; PCP Family Medicine; Visit Provider Family Medicine
DX: I21.4 Non-ST elevation (NSTEMI) myocardial infarction (principal); I25.110 Atherosclerotic heart disease of native coronary artery with unstable angina pectoris; I10 Essential (primary) hypertension; Z20.822 Contact with and (suspected) exposure to COVID-19; G47.33 Obstructive sleep apnea (adult) (pediatric); E11.9 Type 2 diabetes mellitus without complications; E78.5 Hyperlipidemia, unspecified; K76.0 Fatty (change of) liver, not elsewhere classified; I44.7 Left bundle-branch block, unspecified; E66.9 Obesity, unspecified; Z87.891 Personal history of nicotine dependence; Z68.31 Body mass index [BMI] 31.0-31.9, adult; Z90.710 Acquired absence of both cervix and uterus; Z79.82 Long term (current) use of aspirin
CPT/HCPCS: 36415; 71046; 80053; 83690; 84484; 85025; 85610; 85730; 87636; 93005; 96365; 96366; 96375; 99285; A9270; C8929; G0378; J1644; J2405; Q9957

== ENCOUNTER 2022-12-23 11:00 | Outpatient (RCR) | payer MEDICARE, SELFPAY | END 2023-01-27 19:15 | disposition home or self-care (01) | LOC: ANHCPREHAB 11:00 | PROVIDERS: PCP Family Medicine | DX: Z95.1 Presence of aortocoronary bypass graft (principal) | CPT/HCPCS: 93798 ==

== ENCOUNTER 2023-12-12 09:57 | Emergency (ER) | payer MEDICARE, SELFPAY ==
[2023-12-12 09:59] VITALS: BP 156/55; PULSE 72; RESP 16; TEMP 36.6; O2SAT 98
[2023-12-12] MEDS: OXYMETAZOLINE HCL 0.05% NAS 15 ML BTL (*BKC) 1 SPRAY NASAL (11:47)
--- NOTE | 2023-12-12 11:57 | PC.NURSE ---
Nasal clamp removed, pt nose still bleeding. EDP made aware
--- NOTE | 2023-12-12 12:48 | ED.EPISTAXIS ---
HPI - Epistaxis General Chief complaint: Epistaxis Stated complaint: nose bleed Time Seen by Provider: 12/12/23 11:03 History of Present Illness HPI Narrative: Patient has been having a nosebleed ongoing for the last 2 hours, starting from her left nares, denies any recent trauma, she just needs to. Has had nosebleeds on and off in the left nostril in the past. Is on Plavix and aspirin. Related Data Home Medications Medication Instructions Recorded Confirmed rosuvastatin 5 mg tablet 10 mg PO DAILY 10/09/22 11/03/23 aspirin 81 mg tablet,delayed 81 mg PO DAILY 02/05/23 11/03/23 release (Adult Aspirin Regimen) carvedilol 25 mg tablet 25 mg PO Q12H 02/05/23 11/03/23 dapagliflozin propanediol 10 mg 10 mg PO DAILY 02/05/23 11/03/23 tablet (Farxiga) furosemide 40 mg tablet 40 mg PO QAM 02/05/23 11/03/23 spironolactone 25 mg tablet 25 mg PO DAILY 02/05/23 11/03/23 sacubitril 49 mg-valsartan 51 mg 1 tablet PO BID 07/02/23 11/03/23 tablet (Entresto) Allergies Allergy/AdvReac Type Severity Reaction Status Date / Time hydrocodone AdvReac Mild Nausea and Verified 12/12/23 11:38 Vomiting Review of Systems Review of Systems: CONST: No fever. HEENT: Epistaxis C/V: No chest pain RESP: No cough GI: No nausea/vomiting : No dysuria. M/S: No joint pain. SKIN: No rash. NEURO: [No headache or focal numbness or weakness] PSYCH: [No depression] [facility] Past Medical History Medical History (Updated 12/12/23 @ 12:47 by Viji Thompson MD) CAD (coronary artery disease) Cough Fatty liver History of stress test (~2020) HLD (hyperlipidemia) HTN (hypertension), benign Hypertensive arteriosclerotic cardiovascular disease Obesity MEETA (obstructive sleep apnea) Type 2 diabetes mellitus without complications Surgical History Surgical History (Updated 11/03/23 @ 14:37 by Rios Kline MD) History of foot surgery (~2009) History of hernia surgery History of hysterectomy (~1981) History of knee surgery (~2015) History of rotator cuff surgery right S/P CABG (coronary artery bypass graft) S/P coronary artery stent placement Family History Family History Mother Diabetes mellitus Hypertension Family history of cardiovascular disease Acute myocardial infarction Father Family history of cardiovascular disease CHF (congestive heart failure) Social History Social History Smoking status: Never smoker Second hand tobacco smoke exposure: No Alcohol intake: never Drinks per week: 0 Alcohol use details: rare Substance use: current Substance use type: does not use Lack of Transportation: No Lack of Food: Never True Current Housing: I Have Housing Concerned About Future Housing: No Difficulty Paying Gas/Electric Bills: No Difficulty Paying for Meds: No Currently Unemployed: No Education: Bachelor's Degree Difficulty w/ Childcare or Family Care: No Living arrangements: with family Occupation/Education: retired Gender identity (if verbalized by the patient): Female Sexual Orientation (if Verbalized by the Patient): Straight or Heterosexual Spiritual care concerns: No Exam Narrative: EXAMINATION OF ORGAN SYSTEMS/BODY AREAS: Constitutional: Vital signs per nursing GENERAL:[No acute distress, non-toxic appearing.] HEAD: Normal with no signs of head trauma. EYES: Active trickling blood L nares LUNGS: Nonlabored breathing. HEART: [Regular rate and rhythm] ABD: No distension EXT: Normal range of motion SKIN: [No rashes or lesions.] NEURO: [Alert and oriented x 3. No gross focal sensory or strength deficits.] PSYCH: Normal affect Course Vital Signs Vital signs: Vital Signs Temperature 97.9 F 12/12/23 09:59 Pulse Rate 72 12/12/23 09:59 Respiratory Rate 16 12/12/23 09:59 Blood Pressure 156/55 H 12/12/23 09:59 Pulse Oximetry 9
[2023-12-12 13:10] VITALS: BP 166/82; PULSE 76; RESP 14; TEMP 36.6; O2SAT 99
== END 2023-12-12 13:12 | disposition home or self-care (01) ==
PROVIDERS: Emergency Provider Emergency Medicine; PCP Family Medicine
DX: R04.0 Epistaxis (principal); I25.10 Atherosclerotic heart disease of native coronary artery without angina pectoris; I10 Essential (primary) hypertension; E11.9 Type 2 diabetes mellitus without complications; E78.5 Hyperlipidemia, unspecified; E66.9 Obesity, unspecified; Z68.30 Body mass index [BMI] 30.0-30.9, adult; G47.33 Obstructive sleep apnea (adult) (pediatric); Z95.1 Presence of aortocoronary bypass graft; Z95.5 Presence of coronary angioplasty implant and graft; Z90.710 Acquired absence of both cervix and uterus; Z79.82 Long term (current) use of aspirin; Z79.84 Long term (current) use of oral hypoglycemic drugs
CPT/HCPCS: 99283; A9270

== ENCOUNTER 2023-12-12 18:37 | Emergency (ER) | payer MEDICARE, SELFPAY ==
--- NOTE | 2023-12-12 18:44 | ED.EPISTAXIS ---
HPI - Epistaxis General Chief complaint: Epistaxis <Tomasa Llamas PA-C - Last Filed: 12/14/23 11:26> Stated complaint: Nose bleed <Tomasa Llamas PA-C - Last Filed: 12/14/23 11:26> Time Seen by Provider: 12/12/23 18:44 <Tomasa Llamas PA-C - Last Filed: 12/14/23 11:26> Focused HPI: This is a 73 year old female that presents to the ER for nosebleed. She was seen in the ER today and had a rhino rocket placed. Reports it is now soaked with blood which prompted her to be seen again. GENERAL: Well-appearing, well-nourished, and in no acute distress. HEAD: Normocephalic, atraumatic. ENT: Rhino rocket in place, no active oozing of blood CHEST: Clear to auscultation. ?No respiratory distress. HEART: Regular rate and rhythm.? NEURO: ?Alert and oriented x3. Patient screened in triage and initial orders placed.? ?Additional care and disposition to be based upon?diagnostic testing and treatment. <Tomasa Llamas PA-C - Last Filed: 12/14/23 11:26> History of Present Illness HPI Narrative: 73 old female present to the emergency department for re-evaluation for her epistaxis and rhino rocket. <Prateek Love MD - Last Filed: 12/19/23 08:17> Related Data Home medications: Home Medications Medication Instructions Recorded Confirmed rosuvastatin 5 mg tablet 10 mg PO DAILY 10/09/22 12/15/23 aspirin 81 mg tablet,delayed 81 mg PO DAILY 02/05/23 12/15/23 release (Adult Aspirin Regimen) carvedilol 25 mg tablet 25 mg PO Q12H 02/05/23 12/15/23 sacubitril 49 mg-valsartan 51 mg 1 tablet PO BID 07/02/23 12/15/23 tablet (Entresto) furosemide 40 mg tablet 20 mg PO DAILY 12/15/23 12/15/23 spironolactone 25 mg tablet 12.5 mg PO DAILY 12/15/23 12/15/23 <Tomasa Llamas PA-C - Last Filed: 12/14/23 11:26> Allergies/adverse reactions: Allergies Allergy/AdvReac Type Severity Reaction Status Date / Time hydrocodone AdvReac Mild Nausea and Verified 12/15/23 08:47 Vomiting <Tomasa Llamas PA-C - Last Filed: 12/14/23 11:26> Review of Systems Review of Systems: All systems reviewed & are unremarkable except as noted in HPI and below <Prateek Love MD - Last Filed: 12/19/23 08:17> [facility] Past Medical History Medical History: Medical History CAD (coronary artery disease) Cough Fatty liver History of stress test (~2020) HLD (hyperlipidemia) HTN (hypertension), benign Hypertensive arteriosclerotic cardiovascular disease Obesity MEETA (obstructive sleep apnea) Type 2 diabetes mellitus without complications <Tomasa Llamas PA-C - Last Filed: 12/14/23 11:26> Surgical History Surgical History: Surgical History History of foot surgery (~2009) History of hernia surgery History of hysterectomy (~1981) History of knee surgery (~2015) History of rotator cuff surgery right S/P CABG (coronary artery bypass graft) S/P coronary artery stent placement <Tomasa Llamas PA-C - Last Filed: 12/14/23 11:26> Family History Family History: Family History Mother Diabetes mellitus Hypertension Family history of cardiovascular disease Acute myocardial infarction Father Family history of cardiovascular disease CHF (congestive heart failure) <Tomasa Llamas PA-C - Last Filed: 12/14/23 11:26> Social History Social History: Social History Smoking status: Never smoker Second hand tobacco smoke exposure: No Alcohol intake: never Drinks per week: 0 Alcohol use details: rare Substance use: current Substance use type: does not use Lack of Transportation: No Lack of Food: Never True Current Housing: I Have Housing Concerned About Future Housing: No Difficulty Paying Gas/Electric Bills: No Difficulty Paying for Meds:
[2023-12-12 19:09] VITALS: BP 152/90; PULSE 94; RESP 18; TEMP 36.4; O2SAT 99
[2023-12-12 20:35] VITALS: BP 143/90; PULSE 77; RESP 15; TEMP 36.7; O2SAT 99
== END 2023-12-12 20:36 | disposition home or self-care (01) ==
LOC: ANHED 20:26
PROVIDERS: Emergency Provider Emergency Medicine; PCP Family Medicine
DX: R04.0 Epistaxis (principal); I25.10 Atherosclerotic heart disease of native coronary artery without angina pectoris; I10 Essential (primary) hypertension; E78.5 Hyperlipidemia, unspecified; E11.9 Type 2 diabetes mellitus without complications; E66.9 Obesity, unspecified; Z68.30 Body mass index [BMI] 30.0-30.9, adult; G47.33 Obstructive sleep apnea (adult) (pediatric); Z95.1 Presence of aortocoronary bypass graft; Z95.5 Presence of coronary angioplasty implant and graft; Z90.710 Acquired absence of both cervix and uterus; Z79.82 Long term (current) use of aspirin; Z79.84 Long term (current) use of oral hypoglycemic drugs
CPT/HCPCS: 99281

== ENCOUNTER 2024-04-21 13:53 | Outpatient (CLI) | payer MEDICARE, SELFPAY ==
--- NOTE | ~2024-04-21 | XR_ITS ---
XR knee RT 3V 04/21/2024 14:13 Indication: Right knee pain Procedure: 4 views right knee Comparison: No prior studies for comparison. Findings: There is mild tricompartment osteoarthritis of the right knee. There is chondrocalcinosis. Small joint effusion. No fracture or traumatic malalignment. Impression: 1: Mild tricompartment osteoarthritis the right knee. Reviewed, dictated and finalized at location B. Impression: 1: Mild tricompartment osteoarthritis the right knee.
== END 2024-04-21 13:54 | disposition home or self-care (01) ==
LOC: ANHIMG 13:58
PROVIDERS: PCP Family Medicine; Visit Provider Student in an Organized Health Care Education/Training Program
DX: M17.11 Unilateral primary osteoarthritis, right knee (principal)
CPT/HCPCS: 73562

== ENCOUNTER 2024-05-19 10:48 | Outpatient (CLI) | payer MEDICARE, SELFPAY ==
--- NOTE | ~2024-05-19 | MM_ITS ---
EXAMINATION: MM screening phong BI w rachel HISTORY: Screening TECHNIQUE: Craniocaudal and mediolateral oblique 3-D tomosynthesis images were obtained and synthetic 2-D images were generated. CAD analysis was submitted and interpreted. COMPARISON: Comparison to multiple prior studies sequentially, with oldest reviewed study dated 06/12. BREAST PARENCHYMAL COMPOSITION: Not dense: There are scattered areas of fibroglandular density. FINDINGS: There is no evidence of suspicious mass, calcification, or architectural distortion to sugg est malignancy in either breast. There has been no suspicious interval change. IMPRESSION: 1. No mammographic evidence of malignancy. 2. Recommend routine screening mammography in one year. BI-RADS Category 1: Negative Reviewed, dictated and finalized at location B.
== END 2024-05-19 10:49 | disposition home or self-care (01) ==
LOC: MICIMG 10:49
PROVIDERS: PCP Family Medicine; Visit Provider Family Medicine
DX: Z12.31 Encounter for screening mammogram for malignant neoplasm of breast (principal)
CPT/HCPCS: 77063; 77067

== ENCOUNTER 2024-06-02 10:50 | Outpatient (CLI) | payer MEDICARE, SELFPAY ==
--- NOTE | ~2024-06-02 | MR_ITS ---
EXAMINATION: MR knee RT wo con DATE: 06/02/2024 11:37 INDICATION: Right knee pain TECHNIQUE: Magnetic resonance imaging (MRI) of the right knee was performed without intravenous contr ast. Sequences included coronal PD-weighted FSE, coronal PD-weighted FS FSE, sagittal T2-weighted FS E, sagittal PD-weighted FS FSE and axial PD weighted fat saturated FSE. COMPARISON: None. FINDINGS: Medial compartment: Complex tear of the body and posterior horn of the medial meniscus which includes full-thickness radi al tear plane at the lateral side of the posterior horn and posterior planes involving both the super ior and inferior articular surfaces the more medial posterior horn and at the inner third of the post erior body. There is partial thickness cartilage loss with mild chondral surface regularity along the central weightbearing medial femoral condyle. Additional mild partial-thickness cartilage loss with mild underlying subarticular edema-like signal change at the posterior medial aspect of the medial ti bial plateau. Lateral compartment: Lateral meniscus is normal. There is mild partial-thickness cartilage loss with smooth chondral surfa ce at the junction of the central to posterior weightbearing lateral femoral condyle. Patellofemoral compartment: Deep chondral ulceration without degenerative subchondral changes at the medial patellar facet and ap ical ridge. Less severe partial thickness cartilage loss at the medial side of the lateral patellar f acet. Deep chondral fissuring with minimal underlying subarticular edema-like signal change at the tr ochlear groove and with mild cortical irregularity and mild subarticular edema-like signal change at the medial trochlea. Lateral trochlear cartilage remains normal. Ligaments and tendons: Anterior and posterior cruciate ligaments are normal. The medial collateral ligament and fibular onesimo ateral ligament complex are normal. Mild tendinopathy and small enthesophyte at the patellar insertio n of the distal quadriceps tendon. Patellar tendon is normal with subtle small bands of magic angle a rtifact. The visualized medial and lateral hamstring tendons as well as the iliotibial band are negin l. Fluid: Moderate-sized right knee joint effusion with mild synovitis at the suprapatellar pouch and along Hof fa's fat pad. Additional small amount of fluid,, synovitis and a couple 4 mm loose osteochondral bodi es in the popliteal recess. Osseous/other: Low signal intensity bone island at the posterior lateral femoral condyle. Mild intraosseous ganglion cyst at the posterior tibial deep which appears to arise in the region of the footplate of the poste rior horn of the medial meniscus. No fracture or pathologic marrow replacing process. IMPRESSION: 1. Complex tear of the posterior body and posterior horn of the medial meniscus. 2. Mild osteoarthritis with regions of moderate and high-grade chondromalacia in the medial and garcia lofemoral compartments. 3. Moderate-sized right knee joint effusion. Reviewed, dictated and finalized at location B. IMPRESSION: 1. Complex tear of the posterior body and posterior horn of the medial meniscus . 2. Mild osteoarthritis with regions of moderate and high-grade chondromalacia i n the medial and patellofemoral compartments. 3. Moderate-sized right knee joint effusion.
== END 2024-06-02 10:51 | disposition home or self-care (01) ==
LOC: GOSHIMG 10:51
PROVIDERS: PCP Family Medicine
DX: M25.461 Effusion, right knee (principal); M17.11 Unilateral primary osteoarthritis, right knee; S83.231A Complex tear of medial meniscus, current injury, right knee, initial encounter; X58.XXXA Exposure to other specified factors, initial encounter
CPT/HCPCS: 73721

== ENCOUNTER 2024-07-19 10:24 | Emergency (ER) | payer MEDICARE, SELFPAY ==
[2024-07-19 10:31] VITALS: BP 145/66; PULSE 78; RESP 18; TEMP 36.8; O2SAT 99
--- NOTE | 2024-07-19 10:49 | ED.URI ---
HPI - URI/Sore Throat General Chief Complaint: Upper Respiratory Infection Stated Complaint: Sore Throat/Fever/Cough Time Seen by Provider: 07/19/24 10:45 Source: patient, RN notes reviewed and old records reviewed Mode of arrival: ambulatory Limitations: no limitations History of Present Illness HPI Narrative: 73 year old female who presents to [facility] with complaints of sore throat starting on Friday, cough and fevers around 100F with sinus congestion and drainage since Friday. Patient reports that cough is not productive and is causing some burning in chest with cough. Patient reports that she has taken Tylenol and has been taking Mucinex for cough and congestion. Patient reports past history of sinusitis.Home COVID test this morning which was negative. MD elicited complaint: fever, cough, sore throat, rhinorrhea and nasal congestion Pertinent past history: sinusitis, asthma (mild) and other (bronchitis and [place]) Onset (ago): day(s) (4) Description of mucous: yellow and green Able to tolerate fluids by mouth: Yes Treatments prior to arrival: acetaminophen and other (mucinex) Related Data Home Medications Medication Instructions Recorded Confirmed rosuvastatin 5 mg tablet 10 mg PO DAILY 10/09/22 07/19/24 aspirin 81 mg tablet,delayed 81 mg PO DAILY 02/05/23 07/19/24 release (Adult Aspirin Regimen) carvedilol 25 mg tablet 25 mg PO Q12H 02/05/23 07/19/24 sacubitril 49 mg-valsartan 51 mg 1 tablet PO BID 07/02/23 07/19/24 tablet (Entresto) furosemide 40 mg tablet 20 mg PO DAILY 12/15/23 07/19/24 spironolactone 25 mg tablet 12.5 mg PO DAILY 12/15/23 07/19/24 prednisolone acetate 1 %-bromfenac 1 drp ophthalmic (eye) DAILY 07/07/24 07/19/24 0.075 % eye drops,suspension Allergies Allergy/AdvReac Type Severity Reaction Status Date / Time hydrocodone AdvReac Mild Nausea and Verified 07/07/24 10:59 Vomiting Review of Systems Review of Systems: CONSTITUTIONAL: Reports malaise, chills, sweats, or fever. EYES: Denies visual changes, redness, or discharge. ENT: Reports rhinorrhea, congestion, sinus pain, no otalgia and sore throat. CARDIOVASCULAR: Denies chest pain, palpitations, or edema. RESPIRATORY: Reports cough.? Denies dyspnea. GASTROINTESTINAL: Denies abdominal pain, nausea, vomiting, diarrhea SKIN: Denies rash or itching. MUSCULOSKELETAL: Denies myalgia. NEUROLOGIC: Denies headache. All systems reviewed & are unremarkable except as noted in HPI and below PMFSH Past Medical History Medical History (Updated 07/21/24 @ 09:47 by Vera Kaplan NP) CAD (coronary artery disease) Cough Diabetes mellitus with multiple complications Fatty liver History of sinus problem History of stress test (~2020) HLD (hyperlipidemia) HTN (hypertension), benign Hypertensive arteriosclerotic cardiovascular disease Obesity MEETA (obstructive sleep apnea) Surgical History Surgical History History of foot surgery (~2009) History of hernia surgery History of hysterectomy (~1981) History of knee surgery (~2015) History of rotator cuff surgery right S/P CABG (coronary artery bypass graft) S/P coronary artery stent placement Family History Family History Mother Diabetes mellitus Hypertension Family history of cardiovascular disease Acute myocardial infarction Father Family history of cardiovascular disease CHF (congestive heart failure) Social History Social History Smoking status: Never smoker Second hand tobacco smoke exposure: No Alcohol intake: never Substance use: never Substance use type: does not use Do You Feel Safe in your Home?: Yes Lack of Transportation: No Lack of Food: Never True Current Housing: I Have Housing Concerned About Future Housing: No Difficulty Paying Gas/Electric Bills: No Difficulty Paying for Meds: No Currently Unemployed: YES Education: Bachelor's Degree Difficulty w/ Childcare or Family Care: No Living arrangements: with family Occupation/Education: retired Gender identity (if verbalized by the patient): Female Sexual Orientation (if Verbalized by the Patient): Straight or Heterosexual Spiritual care concerns: No Comments At time of signature, agree with nursing past medical, surgical, social and family history. There is no relevant family history pertinent to the presenting complaint Exam Narrative: GENERAL: Well-appearing, well-nourished, and in no acute distress. HEAD: Normocephalic EYES: PERRLA, conjunctivae clear ENT: Nares clear, turbinates edematous and erythematous, clear discharge with sinus pressure.. Mucous membranes moist. TM pearly duncan with dull light reflex bilaterally; no tragal tenderness. Oropharynx erythematous without lesions. Tonsils red not enlarged and without exudate, no drooling, no hoarseness, no trismus, uvula midline, post nasal drainage NECK: Supple. No lymphadenopathy CHEST: Clear to auscultation, breath sounds equal. No wheezing, rhonchi, rales, or stridor. No respiratory distress, speaks in full sentences.cough SAO2 99% on room air HEART: Regular rate and rhythm. No murmur heard. SKIN: Warm, dry, no rash. NEURO: Alert and oriented x3. PSYCH: Normal mood and affect Course Course Emergency Course: Patient is aware of diagnosis, understands and agrees to treatment plan.? Anticipatory guidance given.? Patient agrees to follow-up as directed and is aware of reasons to seek care at the emergency department. Portions of this record may have been created with voice recognition software Level of Care: Express Care Visit Vital Signs Vital signs: Vital Signs Temperature 36.8 C 07/19/24 10:31 Pulse Rate 78 07/19/24 10:31 Respiratory Rate 18 07/19/24 10:31 Blood Pressure 145/66 H 07/19/24 10:31 Pulse Oximetry 99 07/19/24 10:31 Oxygen Delivery Room Air 07/19/24 10:31 Temperature 36.8 C 07/19/24 10:31 Pulse Rate 78 07/19/24 10:31 Respiratory Rate 18 07/19/24 10:31 Blood Pressure 145/66 H 07/19/24 10:31 Pulse Oximetry 99 07/19/24 10:31 Oxygen Delivery Room Air 07/19/24 10:31 Reviewed MDM - URI/Sore Throat MDM Narrative Medical decision making narrative: Differential diagnosis considered: Trammell virus, strep pharyngitis, allergic rhinitis, upper respiratory tract infection, sinusitis, rhinosinusitis, nasopharyngitis. viral pharyngitis, otitis media, otitis externa, pneumonia, bronchitis, viral cough syndrome, viral syndrome, and influenza.? Exam findings show no acute concerns or changes; patient is non-toxic appearing and is in no distress.? Patient is appropriate for outpatient treatment and follow-up. Differential Diagnosis Differential diagnosis: Likely upper respiratory infection, sinusitis, viral infection, pharyngitis and other (strep pharyngitis, cough) Medical Records Attestation: I reviewed the patient's medical records. Lab Data Attestation: I reviewed the patient's lab results. Lab results narrative: strep screen negative, culture sent Labs: Lab Results 07/19/24 Range/Units 11:10 POC Grp A Strep Screen Negative (Negative) Critical Care Time Critical Care Time Critical Care Time: No Discharge Plan Discharge Clinical Impression: URI with cough and congestion Patient Disposition: Home, Self-Care Condition: Stable Instructions: Antibiotic Form, Upper Respiratory Infection (ED), Acute Cough (ED) Additional Instructions: Increase fluids especially juices and water [id number] cough and cold medicine of your choice for your symptoms Prescription cough medicine as directed--caution drowsiness and no driving or alcohol Zyrtec Claritin or Marnie daily may use Coricidin decongestant use nasal saline followed by Flonase daily heat to the face 20-30 minutes 4-6 times a day for pain Salt water gargles, throat lozenges or throat sprays as desired Antibiotic as directed--finished the medication If your symptoms persist, change or worsen significantly before you can contact your personal physician then please, without delay, go to the emergency department for further evaluation. Follow-up with PCP in 7-10 days or sooner if needed Follow up with PCP soon in regards to your blood pressure which is elevated above threshold for referral. Blood pressure above 120/80 may indicate pre-hypertension. 145/66 Prescriptions: New amoxicillin 875 mg tablet 875 mg PO Q12H Qty: 20 0RF Rx Instructions: take with food and complete all doses fluticasone propionate [Flonase Allergy Relief] 50 mcg/actuation spray,suspension 1 spray intranasal DAILY Qty: 16 0RF Rx Instructions: administer into each nostril codeine-guaifenesin 10-100 mg/5 mL liquid 5 ml PO Q6H Qty: 120 0RF Rx Instructions: no driving or operating any machinery while taking No Action prednisolone acetate-bromfenac 1-0.075 % drops,suspension 1 drp ophthalmic (eye) DAILY carvedilol 25 mg tablet 25 mg PO Q12H Rx Instructions: must administer with a meal/food aspirin [Adult Aspirin Regimen] 81 mg tablet,delayed release (DR/EC) 81 mg PO DAILY furosemide 40 mg tablet 20 mg PO DAILY spironolactone 25 mg tablet 12.5 mg PO DAILY Entresto 49-51 mg tablet 1 tablet PO BID rosuvastatin 5 mg tablet 10 mg PO DAILY Patient Comments: TAKES AT HS clopidogrel 75 mg Tablet 75 mg PO QAM Qty: 30 0RF (DME) Blood Glucose Test Strip See Rx Instructions .ROUTE .MEDSUPPLY Qty: 100 3RF Rx Instructions: Use once daily to check blood sugar metformin 500 mg tablet extended release 24 hr 2,000 mg PO QPM Qty: 360 2RF Follow-up/Referrals: Rios Kline MD [Primary Care Provider] - Time of Disposition: 11:05 Quality Sid Coma Scale Eyes: Open Verbal: Oriented and Alert Motor: Follows Commands [place] Coma Total Score: 15
[2024-07-19 11:12] LABS: EDSTREPNEGPOS1 Negative (Negative)
== END 2024-07-19 11:13 | disposition home or self-care (01) ==
PROVIDERS: Emergency Provider Registered Nurse; PCP Family Medicine
DX: J06.9 Acute upper respiratory infection, unspecified (principal); R05.9 Cough, unspecified; I25.10 Atherosclerotic heart disease of native coronary artery without angina pectoris; I10 Essential (primary) hypertension; E11.9 Type 2 diabetes mellitus without complications; K76.0 Fatty (change of) liver, not elsewhere classified; E78.5 Hyperlipidemia, unspecified; E66.9 Obesity, unspecified; Z68.29 Body mass index [BMI] 29.0-29.9, adult; Z95.5 Presence of coronary angioplasty implant and graft
CPT/HCPCS: 87081; 87880; 99213; G0463

== ENCOUNTER 2024-10-19 09:48 | Outpatient (CLI) | payer MEDICARE, SELFPAY ==
--- OUTSIDE RECORDS SUMMARY | 2024-10-19 10:22 | XMS_ITS | Clinical Summary ---
Author Organization [facility] Address [address] [place] [address]. [place], [place] [address] [place] [address] Care Team Providers Care Correspondence Section Supervisor Name Role Phone Rios Kline MD Primary Care Provider [phone] Social History Tobacco Use Types Packs/Day Years Used Date Smoking Tobacco: Never Assessed Comments Unknown Sex and Gender Information Value Date Recorded Sex Assigned at Not on file Legal Sex Female 7:24 PM CDT Gender Identity Not on file Sexual Orientation Not on file Plan of Treatment Health Maintenance Due Date Last Done Comments Colorectal Cancer Screening Colonoscopy (10 Years) 1949 Hepatitis C 1967 DTaP, Tdap and Td Vaccines (1 - Tdap) 1968 Annual Medicare Wellness Visit 2014 Dexa Scan (General) 2014 COVID-19 Vaccine ( season) 2024 06/04/2022, 03/04/2022, 07/06/2021, Additional history exists Influenza Adult (#1) 2024 05/10/2019, 05/30/2018, 05/27/2017 RSV Immunization or 60+ Years (1 - 1-dose 75+ series) 2024 Pneumococcal Vaccine: 65+ Years Completed 01/16/2017, 12/25/2015 Zoster Vaccines Completed 11/12/2018, 09/17/2018 Meningococcal B Vaccine Aged Out No l onger eligible based on patient's age to complete this topic Meningococcal Vaccine Aged Out No nieves jeramy eligible based on patient's age to complete this topic RSV Immunizations Under 20 Months Aged Out No longer eligible based on patient's age to complete this topic Insurance MEDICARE AETNA Care Teams Correspondence Section Supervisor Relationship Specialty Start Date End Date Rios Kline MD [address] [place] [address] PCP - General FAMILY PRACTICE 05/28/22
--- OUTSIDE RECORDS SUMMARY | 2024-10-19 10:22 | XMS_ITS | Clinical Summary ---
Author Organization [facility] [address] Address [address] [place] [address] Care Team Providers Care Sap Bobj Developer Name Role Phone Rios Kline MD Primary Care Provider Allergies No known active allergies Medications diltiaZEM (CARDIZEM) 120 mg tablet Take 120 mg by mouth 2 (two) times a day 05/11/2021 Active indapamide (LOZOL) 2.5 mg tablet Take 2.5 mg by mouth daily 05/11/2021 Active metFORMIN XR (GLUCOPHAGE XR) 500 mg 24 hr tablet TAKE 4 TABLETS BY MOUTH ONCE DAILY IN THE EVENING 05/11/2021 Active aspirin (Adult Low Dose Aspirin) 81 mg enteric coated tablet Take 1 tablet (81 mg total) by mouth daily 08/02/2021 Active Tradjenta 5 mg tablet Take 5 mg by mouth every morning 03/31/2022 Active valsartan (DIOVAN) 160 mg tablet Take 1 tablet (160 mg total) by mouth daily 30 tablet 11 10/01/2022 Active rosuvastatin (CRESTOR) 10 mg tablet Take 1 tablet (10 mg total) by mouth daily 30 tablet 11 10/07/2022 Active Active Problems Problem Noted Date Diagnosed Date Coronary artery disease invo lving [place] coronary artery of [place] heart without angina pectoris 04/09/2022 History of 2019 novel coronavirus disease (COVID -19) 04/09/2022 Palpitations 06/22/2021 Abnormal ECG 06/22/2021 Hypertension associated with diabetes 06/22/2021 Mixed diabetic hyperlipidemi a associated with type 2 diabetes mellitus 06/22/2021 MEETA on CPAP 06/22/2021 Surgical History Surgery Date Site/Laterality Comments KNEE SURGERY HERNIA REPAIR TUBAL LIGATION HYSTERECTOMY Medical History Medical History Date Comments Fatty liver Hyperlipidemia Hypertension MEETA (obstructive sleep apnea) Diabetes mellitus (HCC) Family History Medical History Relation Name Comments Heart attack Father Heart disease Father Diabetes Mother Heart disease Mother Heart failure Mother Hypertension Mother Relation Name Status Comments Father (Age 56) Mother (Age 66) Social History Tobacco Use Types Packs/Day Years Used Date Smoking Tobacco: Never Smokeless Tobacco: Never Personal Safety Answer Date Recorded Getting School Help Needed Not on file 09/13 Comments Unknown Sex and Gender Information Value Date Recorded Sex Assigned at Not on file Legal Sex Female 10:49 PM HAND EXPANSION ENVELOPE MAKER Gender Identity Not on file Sexual Orientation Not on file Obstetrics History Last Filed Vital Signs Vital Sign Reading Time Taken Comments Blood Pressure 126/76 10/01/2022 11:36 AM HAND EXPANSION ENVELOPE MAKER Pulse 91 10/01/2022 11:36 AM HAND EXPANSION ENVELOPE MAKER Temperature - - Respiratory Rate - - Oxygen Saturation 97% 10/01/2022 11:36 AM HAND EXPANSION ENVELOPE MAKER Inhaled Oxygen Concentration - - Weight 82.8 kg (182 lb 8.7 oz) 10/01/2022 11:36 AM HAND EXPANSION ENVELOPE MAKER Height 160 cm (5' 3 ) 10/01/2022 11:36 AM HAND EXPANSION ENVELOPE MAKER Body Mass Index 32.34 10/01/2022 11:36 AM HAND EXPANSION ENVELOPE MAKER Plan of Treatment Health Maintenance Due Date Last Done Comments Albumin Creatinine Ratio, Urine 1950 Colon Cancer Screening-Colonoscopy 1949 Depression Screening 1949 Fall Risk Assessment 1949 Hemoglobin A1C 1949 Hepatitis C Screening 1949 Osteoporosis Screening-Bone Density Scan 1949 eGFR 1949 Dilated Eye Exam 1949 Foot Exam 1949 DTaP/Tdap/Td Vaccine (1 - Tdap) 1960 Hepatitis B Screening 1967 Well Visit 65+ 2014 Lipid Panel 09/11/2023 09/11/2022, 0801/2022, 08/15/2021, Additional history exists Covid-19 Vaccine (3 - 2023-2 5 season) 2024 11/27/2020, 10/26/2020 Influenza Vaccine (#1) 2024 0, 05/10/2019, 05/30/2018, Additional history exists Breast Cancer Screening-Mammogram Discontinued 013 Pneumococcal vaccine 65+ Completed 01/16/2017, 12/14 Zoster Vaccine Completed 11/12/2018, 09/17/2018 Procedures Procedure Name Priority Date/Time Associated Diagnosis Comments LIPID PANEL Routine 09/11/2022 SCREENING MAMMOGRAM Routine 04/13/2013 1 0:33 AM CDT from Last 3 Months or Most Recently Relevant to Health Maintenance Results * Lipid panel (09/11/2022) SCRIBED Cholesterol, Total 166 <200 EXTERNAL LAB SCRIBED HDL 73 >50 EXTERNAL LAB SCRIBED LDL 70 0 - 99 EXTERNAL LAB SCRIBED Triglycerides 156 <150 EXTERNAL LAB Blood us Historical Provider LAB BLOOD ORDERABLES Edit ed Result - Final EXTERNAL LAB * Screening Mammogram (04/13/2013 10:33 AM CDT) Anatomical Region Laterality Modality Breast N/A Mammography 04/13/2013 10:3 3 AM CDT Narrative 04/15/2013 2:34 PM CDT AUGUSTUS VALERIO M.D. FINAL REPORT ACC# ??Date Time ??Exam [id number] Apr 13, 2013 10:33:00 BMV [id number] [facility] Screening Mamm ?? Technologist(s): Blossom Berman; ; EXAMINATION: ??Mammogram Findings: A Full-Field Digital Screening Mammogram was performed. ??Views obtained: bilateral craniocaudal; bilateral mediolateral oblique. Computer Aided Detection was performed with [employer].3 version 9.3. The present examination has been compared to prior imaging studies performed at [facility] on 04/14/2012, 02/13/2011 and 10/05/2009. The breasts are almost entirely fat. There is no suspicious abnormality in either breast. IMPRESSION: ??Annual screening mammography is recommended. OVERALL FINAL ASSESSMENT: BI-RADS CATEGORY 1: ??Negative. Requested By: Irving Guadalupe ??Petty Dictated By: ?? AUGUSTUS VALERIO M.D. ??on Apr ??1 2012 ??2:34P This document has been electronically signed by: AUGUSTUS VALERIO M.D. on Apr ??1 2012 ??2:34P Procedure Note Provider, MD Rosario - 01/07/2017 AUGUSTUS VALERIO M.D. FINAL REPORT ACC# Date Time Exam [id number] Apr 13, 2013 10:33:00 BMV [id number] [place] Screening Mamm Technologist(s): Blossom Berman; ; EXAMINATION: Mammogram Findings: A Full-Field Digital Screening Mammogram was performed. Views obtained: bilateral craniocaudal; bilateral mediolateral oblique. Computer Aided Detection was performed with [employer].3 version 9.3. The present examination has been compared to prior imaging studies performed at [facility] on04/14/2012, 02/13/2011 and 10/05/2009. The breasts are almost entirely fat. There is no suspicious abnormality in either breast. IMPRESSION: Annual screening mammography is recommended. OVERALL FINAL ASSESSMENT: BI-RADS CATEGORY 1: Negative. Requested By: Irving Guadalupe M.D. Dictated By: AUGUSTUS VALERIO M.D. on Apr 15 2013 2:34P This document has been electronically signed by: AUGUSTUS VALERIO M.D. on Apr 15 2013 2:34P Historical Provider MD WEBER MAMMO PROCEDURES Jaye l Result from Last 3 Months or Most Recently Relevant to Health Maintenance Insurance AETNA MEDICARE GOLD Care Teams Sap Bobj Developer Relationship Specialty Start Date End Date Rios Kline MD [address] [facility] [address] [place] [address] PCP - General Family Medicine 05/11/21
--- OUTSIDE RECORDS SUMMARY | 2024-10-19 10:22 | XMS_ITS | Referral Summary ---
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 2 diabetes mellitus 06/22/2021 MEETA on CPAP 06/22/2021 Social History Tobacco Use Types Packs/Day Years Used Date Smoking Tobacco: Never Smokeless Tobacco: Never Personal Safety Answer Date Recorded Getting School Help Needed Not on file 09/13 Comments Unknown Sex and Gender Information Value Date Recorded Sex Assigned at Not on file Legal Sex Female 10:49 PM SOFTWARE DEVELOPMENT PROJECT MANAGER Gender Identity Not on file Sexual Orientation Not on file Last Filed Vital Signs Vital Sign Reading Time Taken Comments Blood Pressure 126/76 10/01/2022 11:36 AM SOFTWARE DEVELOPMENT PROJECT MANAGER Pulse 91 10/01/2022 11:36 AM SOFTWARE DEVELOPMENT PROJECT MANAGER Temperature - - Respiratory Rate - - Oxygen Saturation 97% 10/01/2022 11:36 AM SOFTWARE DEVELOPMENT PROJECT MANAGER Inhaled Oxygen Concentration - - Weight 82.8 kg (182 lb 8.7 oz) 10/01/2022 11:36 AM SOFTWARE DEVELOPMENT PROJECT MANAGER Height 160 cm (5' 3 ) 10/01/2022 11:36 AM SOFTWARE DEVELOPMENT PROJECT MANAGER Body Mass Index 32.34 10/01/2022 11:36 AM SOFTWARE DEVELOPMENT PROJECT MANAGER Plan of Treatment Not on file Procedures Procedure Name Priority Date/Time Associated Diagnosis [...] M.D. FINAL REPORT ACC# ??Date Time ??Exam [id number] Apr 13, 2013 10:33:00 BMV [id number] [facility] Screening Mamm ?? Technologist(s): Blossom Berman; ; EXAMINATION: ??Mammogram Findings: A Full-Field Digital Screening Mammogram was performed. ??Views obtained: bilateral craniocaudal; bilateral mediolateral oblique. Computer Aided Detection was performed with [employer] 1.3 version 9.3. The present examination has been compared to prior imaging studies performed at [facility] on 04/14/2012, 02/13/2011 and 10/05/2009. The breasts are almost entirely fat. There is no suspicious abnormality in either breast. IMPRESSION: ??Annual screening mammography is recommended. OVERALL FINAL ASSESSMENT: BI-RADS CATEGORY 1: ??Negative. Requested By: Irving Guadalupe ??M.D. Dictated By: ?? AUGUSTUS VALERIO M.D. ??on Apr ??2012 ??2:34P This document has been electronically signed by: AUGUSTUS VALERIO M.D. on Apr ??2012 ??2:34P Procedure Note Provider, MD Rosario - 01/07/2017 AUGUSTUS VALERIO M.D. FINAL REPORT ACC# Date Time Exam [id number] Apr 13, 2013 10:33:00 BMV [id number] [facility] Scre[facility] M[facility] Technologist(s): Blossom Berman; ; EXAMINATION: Mammogram Findings: A Full-Field Digital Screening Mammogram was performed. Views obtained: bilateral craniocaudal; bilateral mediolateral oblique. Computer Aided Detection was performed with [employer] 1.3 version 9.3. The present examination has been compared to prior imaging studies performed at [facility] on04/14/2012, 02/13/2011 and 10/05/2009. [...] VALERIO M.D. on Apr 15 2013 2:34P us Historical Provider MD WEBER MAMMO PROCEDURES Jaye l Result from Last 3 Months or Most Recently Relevant to Health Maintenance Insurance AETNA MEDICARE GOLD Care Teams Chemist Assistant Relationship Specialty Start Date End Date Rios Kline MD [address] [place] [address] PCP - General Family Medicine 05/11/21
--- OUTSIDE RECORDS SUMMARY | 2024-10-19 10:22 | XMS_ITS | Clinical Summary ---
Author Organization [facility] Address [address], [address] [address] Phone Care Team Providers Care Coil Repair Technician Name Role Phone Rios Kline MD Primary Care Provider Social History Tobacco Use Types Packs/Day Years Used Date Smoking Tobacco: Never Assessed Comments Unknown Sex and Gender Information Value Date Recorded Sex Assigned at Not on file Legal Sex Female 10:43 PM CDT Gender Identity Not on file Sexual Orientation Not on file Plan of Treatment Health Maintenance Due Date Last Done Comments DEXA Bone Density 1950 Hepatitis C Virus (HCV) Screening 1950 TdaP Immunization 1949 Cologuard 1999 Immunochemical Fecal Occult Blood 1999 Mammogram 1999 Pneumococcal Immunization (5 0+ years) (1 of 1 - PCV) 1999 Zoster Immunization (1 of 2) 1999 Colonoscopy 01/29/2024 01/28/2019 Colorectal Cancer Screening 01/29/2024 Influenza Immunization (#1) 2024 SARS-COV-2 Immunization ( - season) 2024 Respiratory Syncytial Virus (RSV) Immunization (Adult) (1 - 1-dose 75+ series) 2024 01/28/2019 Hepatitis B Immunization Aged Out No longer eligible based on patient's age to complete this topic Meningococcal Immunization (ACWY) Aged Out No longer eligible based on patient's age to complete this topic Rotavirus Immunization Aged Out No lo nger eligible based on patient's age to complete this topic Procedures Procedure Name Priority Date/Time Associated Diagnosis Comments HM COLONOSCOPY Routine 01/28/2019 from Last 3 Months or Most Recently Relevant to Health Maintenance Results * COLONOSCOPY (01/28/2019) Herb Andrés Calderon DO PROCEDURE/MINOR SURGICAL ORDERA BLES Final Result from Last 3 Months or Most Recently Relevant to Health Maintenance Insurance MEDICARE T SENIOR SUPPLEMENTAL Care Teams Coil Repair Technician Relationship Specialty Start Date End Date Rios Kline MD [address] [place] [address] PCP - General Family Medicine 08/05/18
[2024-10-19 10:31] LABS: Hematocrit 37.1 % (37.0-47.0); Hemoglobin 12.1 g/dL (12.0-15.0)
[2024-10-19 10:49] LABS: Albumin Level 4.3 g/dL (3.5-5.1); Estimated Glomerular Filt Rate > 60; Glucose 106 mg/dL (65-110)
[2024-10-19 12:32] LABS: Hemoglobin A1C 6.7 % (<5.7)
== END 2024-10-19 09:49 | disposition home or self-care (01) ==
PROVIDERS: PCP Family Medicine; Visit Provider Orthopaedic Surgery
DX: E78.5 Hyperlipidemia, unspecified (principal); E11.8 Type 2 diabetes mellitus with unspecified complications; K76.0 Fatty (change of) liver, not elsewhere classified; M17.11 Unilateral primary osteoarthritis, right knee; G47.33 Obstructive sleep apnea (adult) (pediatric)
CPT/HCPCS: 36415; 82040; 82565; 82947; 83036; 85014; 85018

== ENCOUNTER 2024-12-08 11:11 | Outpatient (CLI) | payer MEDICARE, SELFPAY ==
[2024-12-08 12:16] LABS: Basophils Percent Auto 0.5 % (0.2-1.2); Eosinophils Absolute Auto 0.1 K/mm3 (0-0.3); Eosinophils Percent Auto 1.2 % (0-4.4); Hematocrit 36.8 % (37.0-47.0); Immature Granulocyte Absolute 0.03 K/mm3 (0.00-0.031); Immature Granulocyte Percent A 0.4 % (0-0.5); Lymphocytes Absolute Auto 2.65 K/mm3 (0.9-3.2); Lymphocytes Percent Auto 32.8 % (18.3-44.2); Mean Corpuscular HGB Conc 32.6 g/dl (32-36); Mean Corpuscular Hemoglobin 32.2 pg (26-34); Mean Corpuscular Volume 98.7 fl (80-100); Mean Platelet Volume 10.5 fl (7.4-10.4); Monocytes Absolute Auto 0.7 K/mm3 (0.1-0.6); Monocytes Percent Auto 8.7 % (2.6-8.5); Neutrophils Absolute Auto 4.6 K/mm3 (1.3-6.7); Neutrophils Percent Auto 56.4 % (45.5-73.1); Platelet Count Result 242 k/mm3 (150-375); Red Blood Count 3.73 M/mm3 (4.2-5.4); Red Cell Distribution Width 12.5 % (11.5-14.5); White Blood Count 8.1 K/mm3 (4.5-10.0)
[2024-12-08 12:24] LABS: Albumin Level 4.4 g/dL (3.5-5.1)
[2024-12-08 12:27] LABS: Anion Gap 7 mmol/L (4-12); Blood Urea Nitrogen 14 mg/dL (7-17); Calcium 9.9 mg/dL (8.4-10.2); Carbon Dioxide 29 mmol/L (22-30); Chloride 103 mmol/L (98-107); Estimated Glomerular Filt Rate 55; Glucose 125 mg/dL (65-110); Potassium 4.7 mmol/L (3.4-5.0); Sodium 139 mmol/L (137-145)
[2024-12-08 12:33] LABS: Urine Cotinine NEGATIVE
--- OUTSIDE RECORDS SUMMARY | 2024-12-08 12:50 | XMS_ITS | Clinical Summary ---
Author Organization [facility] Address [address] [place] [address] Care Team Providers Care Airline Pilot Flight Instructor Name Role Phone Rios Kline MD Primary Care Provider [phone] Social History Tobacco Use Types Packs/Day Years [...] this topic Insurance MEDICARE AETNA Care Teams Airline Pilot Flight Instructor Relationship Specialty Start Date End Date Rios Kline MD [address] [place] [address] PCP - General FAMILY PRACTICE 05/28/22
--- OUTSIDE RECORDS SUMMARY | 2024-12-08 12:50 | XMS_ITS | Referral Summary ---
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 Gender Identity Not on file Sexual Orientation Not on file Last Filed Vital Signs Vital Sign Reading Time Taken Comments Blood Pressure 126/76 10/01/2022 11:36 AM HIDE MILL WORKER Pulse 91 10/01/2022 11:36 AM HIDE MILL WORKER Temperature - - Respiratory Rate - - Oxygen Saturation 97% 10/01/2022 11:36 AM HIDE MILL WORKER Inhaled Oxygen Concentration - - Weight 82.8 kg (182 lb 8.7 oz) 10/01/2022 11:36 AM HIDE MILL WORKER Height 160 cm (5' 3 ) 10/01/2022 11:36 AM HIDE MILL WORKER Body Mass Index 32.34 10/01/2022 11:36 AM HIDE MILL WORKER Plan of Treatment Not on file Procedures [...] CDT AUGUSTUS VALERIO M.D. FINAL REPORT ACC# Date Time Exam [id number] Apr 13, 2013 10:33:00 BMV [id number] [place] Screening Mamm Technologist(s): Blossom Berman; ; EXAMINATION: Mammogram Findings: A Full-Field Digital Screening Mammogram was performed. Views obtained: bilateral craniocaudal; bilateral mediolateral oblique. Computer Aided Detection was performed with Sunshineova 1.3 version 9.3. The present examination has been compared to prior imaging studies performed at [facility] on 04/14/2012, [...] VALERIO M.D. on Apr 15 2013 2:34P Procedure Note Provider, MD Rosario - 01/07/2017 AUGUSTUS VALERIO M.D. FINAL REPORT ACC# Date Time Exam [id number] Apr 13, 2013 10:33:00 BMV [id number] [place] Screening Mamm Technologist(s): Blossom Berman; ; EXAMINATION: Mammogram Findings: A Full-Field Digital Screening Mammogram was performed. Views obtained: bilateral craniocaudal; bilateral mediolateral oblique. Computer Aided Detection was performed with Sunshineova 1.3 version 9.3. The present examination has been compared to prior imaging studies performed at [facility] on04/14/2012, 02/13/2011 [...] Historical Provider MD WEBER MAMMO PROCEDURES Jaye benson Result from Last 3 Months or Most Recently Relevant to Health Maintenance Insurance AETNA MEDICARE GOLD Care Teams Cylinder Block Mechanic Relationship Specialty Start Date End Date Rios Kline MD [address] [facility] 120 [place], [place] [id number] PCP - General Family Medicine 05/11/21
--- OUTSIDE RECORDS SUMMARY | 2024-12-08 12:50 | XMS_ITS | Clinical Summary ---
Author Organization [facility] Address [address], [address] [address] Phone Care Team Providers Care Agricultural Services Director Name Role Phone Rios Kline MD Primary [...] Insurance MEDICARE T SENIOR SUPPLEMENTAL Care Teams Agricultural Services Director Relationship Specialty Start Date End Date Rios Kline MD [address] [place] [address] PCP - General Family Medicine 08/05/18
--- OUTSIDE RECORDS SUMMARY | 2024-12-08 12:50 | XMS_ITS | Clinical Summary ---
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 FINAL REPORT ACC# Date Time Exam [id number] Apr 13, 2013 10:33:00 BMV [id number] [place] Screening Mamm Technologist(s): Blossom Berman; ; EXAMINATION: Mammogram Findings: A Full-Field Digital Screening Mammogram was performed. Views obtained: bilateral craniocaudal; bilateral mediolateral oblique. Computer Aided Detection was performed with Alegría.3 version 9.3. The present examination has been compared to prior imaging studies performed at [facility] on 04/14/2012, 02/13/2011 and [...] M.D. FINAL REPORT ACC# Date Time Exam [id number] Apr 13, 2013 10:33:00 BMV [id number] [place] Screening Mamm Technologist(s): Blossom Berman; ; EXAMINATION: Mammogram Findings: A Full-Field Digital Screening Mammogram was performed. Views obtained: bilateral craniocaudal; bilateral mediolateral oblique. Computer Aided Detection was performed with Alegría.3 version 9.3. The present examination has been compared to prior imaging studies performed at [facility] on04/14/2012, 02/13/2011 and 10/05/2009. [...] Maintenance Insurance AETNA MEDICARE GOLD Care Teams Digital Marketing Intern Relationship Specialty Start Date End Date Rios Kline MD [address] [facility] 120 [place] [address] PCP - General Family Medicine 05/11/21
[2024-12-08 13:27] LABS: MRSA (PCR) NOT DETECTED (NOT DETECTE)
== END 2024-12-08 11:12 | disposition home or self-care (01) ==
LOC: ANHSURGERY 11:13
PROVIDERS: Anesthesiology; PCP Family Medicine; Visit Provider Orthopaedic Surgery
DX: M17.11 Unilateral primary osteoarthritis, right knee (principal); Z79.899 Other long term (current) drug therapy; E11.8 Type 2 diabetes mellitus with unspecified complications; Z01.818 Encounter for other preprocedural examination
CPT/HCPCS: 36415; 80048; 80307; 82040; 85025; 87641

== ENCOUNTER 2025-01-04 03:16 | Day surgery (SDC) | payer MEDICARE, SELFPAY ==
[2024-12-08 11:32] VITALS: BP 141/64; PULSE 55; RESP 16; TEMP 36.5; O2SAT 100; BMI 31.6
--- NOTE | 2024-12-08 11:50 | PC.NURSE ---
Report to the Outpatient Waiting Room, entrance under the green pavilion located off [facility], at time __0800am on date __01/04/25 . Planned Procedure Time: 1000am .? Time changes happen often and if your time is changed the preop area will call you the afternoon before. - You and your visitor will be asked to self-screen and do not enter if you have any COVID symptoms. Please call surgeon if you need to reschedule. - A mask is optional within the hospital at this time. Patients may have clear liquids (water, carbonated beverages, clear teas, apple juice) until 3 hours prior to surgery with a maximum of 20 ounces. - No food from midnight until time of surgery and no smoking, or chewing tobacco (or any form of nicotine). No chewing gum, candy or mints. (0700am) Take only the following medications with a SIP of water on the morning of surgery: Coreg/Carvedilol & Tylenol if needed DO NOT STOP ANY OF YOUR OTHER PRESCRIPTION MEDICATIONS PRIOR TO SURGERY EXCEPT THE FOLLOWING Hold all vitamins and supplements for 3 days per anesthesiologist. Medications to discontinue per physician HOLD PLAVIX and ASPIRIN for [address] Washington ( per Mikaela verified- aware of CABG/STENTS) Date to take last dose____12/27/24 Pt to hold Fish Oil/Vitamins for 7 days prior so she remembers with the others above. Aware at least 3 days prior to HOLD. Please no make-up, nail italian, hairspray, perfume, deodorant, or body powder the day of surgery.? No jewelry (including any body piercings) or valuables the day of surgery, leave them at home.? Please take a shower or bath the night before, or the morning of, surgery with an antibacterial soap.? Wear comfortable, loose fitting clothing.? Children are encouraged to wear pajamas. CPAP and Overnight Bag/ Cell phone charger operator helper w phone if you want. - Jewelry must be removed prior to entering the operating room.? Rings and piercings that are not removed may be cut off. - The hospital will not accept responsibility for valuables.? - Please leave all valuables, including medications, at home the day of surgery. If you are going home after surgery, a licensed tank truck driver must drive you home.? - NO public transportation without another adult if you receive anesthesia. - We recommend that an adult stay with you for 24 hours following discharge. - We also recommend that you do not drive, make important decision, drink alcoholic beverages, or take any drugs that were not prescribed by your health care provider for at least 24 hours after your discharge time. Follow any additional instructions given to you from your surgeon. Telephone instructions given to __Patient and asked if any additional questions and then verbalized understanding. Patient advised to call surgeon office or pre surgery nurse liaison [phone] if any additional questions.
[2025-01-04] VITALS (16 sets, daily range): BP systolic 109–149; BP diastolic 44–86; PULSE 57–74; RESP 12–18; TEMP 36.3–36.8; O2SAT 94–100
--- NOTE | ~2025-01-04 | XR_ITS ---
EXAMINATION: [id number] DATE: 01/04/2025 12:49 CDT INDICATION: Right knee arthroplasty TECHNIQUE: 2 views right knee FINDINGS: There is a right total knee arthroplasty in expected position. Subcutaneous gas with fluid and air in the joint are consistent with recent surgery. No evidence of periprosthetic fracture. IMPRESSION: 1. Recent right total knee arthroplasty. Reviewed, dictated and finalized at location A.
--- OUTSIDE RECORDS SUMMARY | 2025-01-04 03:18 | XMS_ITS | Clinical Summary ---
Author Organization [facility] Address [address] [place] [address] Care Team Providers Care Director Energy Name Role Phone Rios Kline MD Primary Care Provider [phone] Social History Tobacco Use Types Packs/Day Years [...] 2024 06/04/2022, 03/04/2022, 07/06/2021, Additional history exists RSV Immunization or 60+ Years (1 - 1-dose 75+ series) 2024 Pneumococcal Vaccine: 50+ Years Completed 01/16/2017, 12/25/2015 Zoster Vaccines Completed 11/12/2018, 09/17/2018 Meningococcal B Vaccine Aged Out No l onger eligible based on patient's age to complete this topic Meningococcal Vaccine Aged Out No nieves jeramy eligible based on patient's age to complete this topic RSV Immunizations Under 20 Months Aged Out No longer eligible based on patient's age to complete this topic Insurance MEDICARE AET Care Teams Director Energy Relationship Specialty Start Date End Date Rios Kline MD [address] [place] [address] PCP - General FAMILY PRACTICE 05/28/22
--- OUTSIDE RECORDS SUMMARY | 2025-01-04 03:18 | XMS_ITS | Referral Summary ---
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 Gender Identity Not on file Sexual Orientation Not on file Last Filed Vital Signs Vital Sign Reading Time Taken Comments Blood Pressure 126/76 10/01/2022 11:36 AM FITNESS INSTRUCTOR Pulse 91 10/01/2022 11:36 AM FITNESS INSTRUCTOR Temperature - - Respiratory Rate - - Oxygen Saturation 97% 10/01/2022 11:36 AM FITNESS INSTRUCTOR Inhaled Oxygen Concentration - - Weight 82.8 kg (182 lb 8.7 oz) 10/01/2022 11:36 AM FITNESS INSTRUCTOR Height 160 cm (5' 3 ) 10/01/2022 11:36 AM FITNESS INSTRUCTOR Body Mass Index 32.34 10/01/2022 11:36 AM FITNESS INSTRUCTOR Plan of Treatment Not on file Procedures [...] M.D. FINAL REPORT ACC# Date Time Exam [id number] Apr 13, 2013 10:33:00 BMV [id number] [place] Screening Mamm Technologist(s): Blossom Berman; ; EXAMINATION: Mammogram Findings: A Full-Field Digital Screening Mammogram was performed. Views obtained: bilateral craniocaudal; bilateral mediolateral oblique. Computer Aided Detection was performed with Chartioova 1.3 version 9.3. The present examination has been compared to prior imaging studies performed at [facility] on 04/14/2012, 02/13/2011 and [...] M.D. FINAL REPORT ACC# Date Time Exam [id number] Apr 13, 2013 10:33:00 BMV [id number] [place] Screening Mamm Technologist(s): Blossom Berman; ; EXAMINATION: Mammogram Findings: A Full-Field Digital Screening Mammogram was performed. Views obtained: bilateral craniocaudal; bilateral mediolateral oblique. Computer Aided Detection was performed with Chartioova 1.3 version 9.3. The present examination has been compared to prior imaging studies performed at [facility] on04/14/2012, 02/13/2011 and 10/05/2009. [...] Maintenance Insurance AETNA MEDICARE GOLD Care Teams Manager Organizational Relationship Specialty Start Date End Date Rios Kline MD [address] [facility] 120 [place], [place] [id number] PCP - General Family Medicine 05/11/21
--- OUTSIDE RECORDS SUMMARY | 2025-01-04 03:18 | XMS_ITS | Clinical Summary ---
Author Organization 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 Gender Identity Not on file Sexual Orientation Not on file Obstetrics History Last Filed Vital Signs Vital Sign Reading Time Taken Comments Blood Pressure 126/76 10/01/2022 11:36 AM STEMHOLE BORER AND TOPPER Pulse 91 10/01/2022 11:36 AM STEMHOLE BORER AND TOPPER Temperature - - Respiratory Rate - - Oxygen Saturation 97% 10/01/2022 11:36 AM STEMHOLE BORER AND TOPPER Inhaled Oxygen Concentration - - Weight 82.8 kg (182 lb 8.7 oz) 10/01/2022 11:36 AM STEMHOLE BORER AND TOPPER Height 160 cm (5' 3 ) 10/01/2022 11:36 AM STEMHOLE BORER AND TOPPER Body Mass Index 32.34 10/01/2022 11:36 AM STEMHOLE BORER AND TOPPER Plan of Treatment Health Maintenance Due Date [...] AM CDT Narrative 04/15/2013 2:34 PM CDT AUGUSUTS VALERIO M.D. FINAL REPORT ACC# Date Time Exam [id number] Apr 13, 2013 10:33:00 BMV [id number] [place] Screening Mamm Technologist(s): Blossom Berman; ; EXAMINATION: Mammogram Findings: A Full-Field Digital Screening Mammogram was performed. Views obtained: bilateral craniocaudal; bilateral mediolateral oblique. Computer Aided Detection was performed with Just Soles.3 version 9.3. The present examination has been compared to prior imaging studies performed at [facility] on 04/14/2012, 02/13/2011 and [...] M.D. FINAL REPORT ACC# Date Time Exam [id number] Apr 13, 2013 10:33:00 BMV [id number] [place] Screening Mamm Technologist(s): Blossom Berman; ; EXAMINATION: Mammogram Findings: A Full-Field Digital Screening Mammogram was performed. Views obtained: bilateral craniocaudal; bilateral mediolateral oblique. Computer Aided Detection was performed with Just Soles.3 version 9.3. The present examination has been compared to prior imaging studies performed at [facility] on04/14/2012, 02/13/2011 and 10/05/2009. [...] Maintenance Insurance AETNA MEDICARE GOLD Care Teams Warp Trucker Relationship Specialty Start Date End Date Rios Kline MD [address] [facility] 120 [place] [address] PCP - General Family Medicine 05/11/21
--- OUTSIDE RECORDS SUMMARY | 2025-01-04 03:18 | XMS_ITS | Clinical Summary ---
Author Organization [facility] Address [address], [address] [address] Phone Care Team Providers Care Order Planner Name Role Phone Rios Kline MD Primary [...] Insurance MEDICARE T SENIOR SUPPLEMENTAL Care Teams Order Planner Relationship Specialty Start Date End Date Rios Kline MD [address] [place] [address] PCP - General Family Medicine 08/05/18
--- NOTE | 2025-01-04 07:44 | P.PNAN_ITS ---
Anes - Initial Pre Proc Eval Procedure: Operation Date: 01/04/25 10:00 Proposed Procedures p Right Total Knee Arthroplasty - Stew Washington MD Date/Time: 01/04/25 07:44 Surgeon: Stew Washington MD Pre Op Diagnosis: Prim O A Rt Knee Patient Data Age: 74 Gender: F Height: 1.6 m Weight: 81 kg Last Vital Signs Temp 36.5 C 12/08/24 11:32 Pulse 55 L 12/08/24 11:32 Resp 16 12/08/24 11:32 BP 141/64 H 12/08/24 11:32 Pulse Ox 100 12/08/24 11:32 O2 Del Method Room Air 12/08/24 11:32 Allergies Allergy/AdvReac Type Severity Reaction Status Date / Time hydrocodone AdvReac Mild Nausea and Verified 01/04/25 08:28 Vomiting Home Medications ?Medication ?Instructions ?Recorded ?Confirmed ?Type blood sugar diagnostic (Blood #100 ea 01/14/22 12/08/24 Rx Glucose Test strips) clopidogrel 75 mg tablet 75 mg PO QAM #30 tabs 10/09/22 01/04/25 Rx rosuvastatin 5 mg tablet 10 mg PO DAILY 10/09/22 01/04/25 History aspirin 81 mg tablet,delayed 81 mg PO DAILY 02/05/23 01/04/25 History release (Adult Aspirin Regimen) carvedilol 25 mg tablet 25 mg PO Q12H 02/05/23 01/04/25 History sacubitril 49 mg-valsartan 51 mg 1 tablet PO BID 07/02/23 01/04/25 History tablet (Entresto) furosemide 40 mg tablet 20 mg PO DAILY 12/15/23 01/04/25 History spironolactone 25 mg tablet 12.5 mg PO EVERY OTHER DAY 12/15/23 01/04/25 History prednisolone acetate 1 %-bromfenac 1 drp ophthalmic (eye) DAILY 07/07/24 01/04/25 History 0.075 % eye drops,suspension fluticasone propionate 50 1 spray intranasal DAILY #16 grams 07/19/24 01/04/25 Rx mcg/actuation nasal spray,suspension (Flonase Allergy Relief) acetaminophen 325 mg tablet 650 mg PO DAILY PRN pain 12/08/24 01/04/25 History (Tylenol) omega-3 fatty acids 2,500 mg PO DAILY 12/08/24 01/04/25 History metformin 500 mg tablet,extended See Rx Instructions .Route 12/13/24 01/04/25 Rx release 24 hr .COMPLEX #400 tabs Patient hx anesthesia problems: none Family hx anesthesia problems: none Results Review: All pre-operative results and documents have been reviewed as part of the pre- operative evaluation. 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 History of stress test (~2020) Obesity CAD (coronary artery disease) Cough Fatty liver HLD (hyperlipidemia) HTN (hypertension), benign MEETA (obstructive sleep apnea) Surgical History Surgical History History of rotator cuff surgery right S/P coronary artery stent placement S/P CABG (coronary artery bypass graft) History of knee surgery (~2015) History of foot surgery (~2009) History of hernia surgery History of hysterectomy (~1981) Family History Family History Mother Diabetes mellitus Hypertension Family history of cardiovascular disease Acute myocardial infarction Father Family history of cardiovascular disease CHF (congestive heart failure) Social History Social History Smoking status: Never smoker Second hand tobacco smoke exposure: No Alcohol intake: never Substance use: never Substance use type: does not use Do You Feel Safe in your Home?: Yes Lack of Transportation: No Lack of Food: Never True Current Housing: I Have Housing Concerned About Future Housing: No Difficulty Paying Gas/Electric Bills: No Difficulty Paying for Meds: No Currently Unemployed: No Education: Bachelor's Degree Difficulty w/ Childcare or Family Care: No Living arrangements: with family Additional living arrangements comments: Occupation/Education: retired Gender identity (if verbalized by the patient): Female Sexual Orientation (if Verbalized by the Patient): Straight or Heterosexual Spiritual care concerns: No Anes - Eval Final PreProcedure Day of Procedure 04/22/25 07:44 Patient weight: obese Heart: regular rate and rhythm Lungs: clear to auscultation Airway: Mallampati scale class II Neurological: alert and oriented Last oral intake: >/= 8 hours ASA classification: III Emergent: no Anesthetic plan: proceed Anesthesia type and monitoring: general LMA and standard monitoring Results Review: All pre-operative results and documents have been reviewed as part of the pre- operative evaluation. Informed Consent: The patient's anesthetic plan and its attendant risks and benefits were discussed with the patient/family/POA. Questions were solicited and answers provided to the satisfaction of the patient/family/POA.
[2025-01-04] MEDS: TRANEXAMIC ACID 1,000MG/ISO100 1,000 MG/100 ML BAG 200 MG IVPB (08:15)
[2025-01-04] MEDS: LACTATED RINGERS 1,000 ML 30 ML IV CONT ×2 (08:15→12:20)
[2025-01-04 08:24] LABS: Glucose Point of Care 126 mg/dl (65-105)
[2025-01-04] MEDS: ACETAMINOPHEN 500 MG TABLET 1000 MG PO (08:25)
--- NOTE | 2025-01-04 08:59 | WPDHPUPDATE1 ---
History and Physical Update Update Date/Time: 01/04/25 08:59 History and Physical has been reviewed, including an updated exam of the patient. There are NO changes in the patient's condition. Risks, benefits, and alternatives have been discussed and questions answered. Patient agrees to proceed with procedure.
[2025-01-04] MEDS: ceFAZolin 2 GM/D5W 50 ML 2 GM/50 ML BAG IVPB ×2 (09:59→17:29)
[2025-01-04] MEDS: SODIUM CHLORIDE 0.9% IV 37.7 ML, MORPHINE SULFATE INJ (*CRX) 2 MG, ROPivacaine HCL 1% 2... INFILTRATE (10:46)
--- NOTE | 2025-01-04 12:20 | P.OP_ITS ---
Procedure Note - Detailed Date of Procedure 01/04/25 Pre-op Diagnosis Right knee degenerative arthritis. Post-op Diagnosis Same Procedure Performed Calipered, kinematically aligned total knee replacement right knee. Surgeon Stew Washington MD Shrimp Trawler Mikaela Vera PA-C Anesthesia General Findings According to the calipered kinematic alignment principles, the knee was balanced by the following verification checks incorporating 6 caliper measurements, using an insert goniometer to select the insert thickness, and adjusting the tibial resection following the kinematic alignment algorithm (see figure 160.10 published in [facility] chapter on kinematic alignment total knee arthroplasty.) The steps verified the femoral and tibial components were kinematically aligned coincident to the patient's pre arthritic joint lines, which closely restored the [place] tibial compartment forces and ligament laxities without ligament release. The MedShapeK LiveHotSpotriKA knee, designed specifically for kinematic alignment, fit optimally. The record of verification checks were documented and scanned into the chart. Distal Femoral Resection: Distal Medial 6 mm(cartilage worn), Distal Lateral 8 mm Target thickness of 8mm Unworn, 6mm Worn (No Cartilage). Posterior Femoral Resection: Posterior Medial 5 mm(cartilage worn), Posterior Lateral 7 mm. Target thickness of 7mm Unworn, 5mm Worn (No Cartilage). Description of Procedure General anesthesia was administered. A well-padded tourniquet was placed high on the thigh. The limb was prepped and draped in the usual sterile fashion. The limb was exsanguinated and the tourniquet inflated to 300 mmHg[during exposure and cementation]. A longitudinal incision was created over the midline of the knee. Sharp dissection was taken through subcutaneous tissues. Electrocautery was used for hemostasis. A trivector approach to the knee joint was performed. The ACL, anterior horns of the menisci, and fat pad were excised, and a subperiosteal dissection was carried along the posterior medial border of the tibia. The thickness of the [place] patella was measured with a caliper. The patella was resected using the oscillating saw. The best fitting anatomic patella button was selected. The fixation holes were drilled. When the patella and patella buttons combined thickness was thicker than the [place] patella, the patella was recut. Starting midway between the top of the notch in the anterior femoral cortex, I drilled a 9 mm diameter hole parallel to the anterior cortex to minimize flexion of the femoral component and promote patella tracking. I verified the existence of a 5-10 mm bone bridge between the posterior aspect of the hole and the anterior limit of the intercondylar notch. An intraosseous positioning gary was inserted 10 cm into the femur perpendicular to the distal joint line and parallel to the anterior cortex. I used a distal femoral referencing guide that compensated 2 mm when the cartilage was worn on the distal medial femoral condyle, and 2 mm when the cartilage was worn on the distal lateral femoral condyle. The basis for setting the distal and posterior femoral resection guide is knowing that the varus and valgus grade II to IV Kellegren-Cole osteoarthritic knees have negligible bone wear at 0? and 90? and that the mean full-thickness cartilage wear approximates 2 mm. I measured the thickness of distal femoral resections with a caliper to +/- 0.5 mm. The thickness of each resection was adjusted to match the thickness of the respective condyle of the femoral component within 0.5 mm of target after compensating for cartilage wear and kerf. When the distal resection was 1-2 mm too thin, a recut guide was used to adjust the cut. When the distal resection was too thick, a 1 or 2 mm thick washer was fixed to the back of the 4-in-1 chamfer block to oscar a corrective gap between the femoral component and distal femur. I set posterior femoral referencing guide at 0? orientation to position the pin holes for the 4 in 1 chamfer block. The tracy wing measured the width of the distal femoral resection and selected the size of the 4 in 1 chamfer block and femoral component. The AP sizer confirmed the size. I measured the thickness of the posterior femoral resections with a caliper before making the anterior and chamfer cuts. I adjusted the thicknesses of each resection to match the thickness of the respective condyle of the femoral component within +/-0.5 mm after compensating for cartilage wear and curve. When a posterior resection femoral resection was 1-2 mm too thick or thin a corrective correction was made by shifting or rotating the 4 in 1 chamfer block as needed. The chamfer block was secured in the correct position with compression screws. The anterior and chamfer femoral resections were made. These caliper measurements and corrections verified that the femoral component was set coincident with the patient's pre-arthritic distal and posterior femoral joint lines. I removed all the medial and lateral femoral and tibial osteophytes to restore the pre arthritic length of the medial and lateral collateral ligaments. I gus AP lines along the major axis of the lateral tibial plateau in between the tibial spines which identified the flexion extension plane of the knee. A conventional extramedullary tibial resection guide was applied to the ankle. An tracy wing was placed medially in the saw slot. The varus valgus angle of the tibial resection guide was adjusted until the guide paralleled the proximal tibial articular surface after compensating for cartilage and bone wear. The slope of flexion extension angle of the tibial resection guide was adjusted until the tracy wing paralleled the slope of the medial tibia after compensating for wear. The AP axis of the tibial resection guide was adjusted parallel to the two lines. The proximal tibia was resected, partially releasing the insertion of the posterior cruciate ligament. The thickness of the medial and lateral lateral tibial condyle was measured at the base of the tibial spines. I visually verified the slope of the medial border of the resection was parallel to the patient's pre arthritic slope after compensating for cartilage and bone wear. I removed the remnants of the posterior horns of the menisci and posterior osteophytes and cauterized the inferior lateral genicular vessels. The Aquamantys bipolar device was also used to for additional hemostasis. When the knee had a preoperative flexion contracture of 20? or more I teased the capsule off the posterior femur with a curved 3 quarter-inch osteotome. I administered the posterior femoral periosteal injection by delivering 10 cc using a 20 gauge spinal needle at the most medial and 10 cc at the most lateral femoral spur surface which reduced the risk of injury to the posterior neurovascular structures. I followed 6 options in a decision tree to fine tune the varus valgus and posterior slope orientation of the tibial component to restore the patient's pre arthritic tibial joint line and limb alignment. First, I adjusted the varus- valgus orientation of the proximal tibia resection working in 1 degree to 2 degree increments until there was negligible medial and lateral lift off of the distal femoral and proximal tibial resection from the spacer block during a varus valgus laxity assessment in extension. I selected the largest anatomic shape trial tibial base plate that fit within the cortical boundary of the proximal tibial resection. The base plate was best fit parallel to the cortical boundary which set the Internal-external or ientation of the anterior to posterior and medial to lateral positions. The best fit method set the AP axis of the tibial base plate and insert parallel to the flexion extension plane of the pre arthritic knee. I pinned the trial tibial base plate, prepared the cruciate slot, and fixed the base plate to the tibia with the cruciate stem. I inserted the trial femoral component. The knee was placed in full extension. Varus valgus laxity is of the knee with trial components were assessed. When asymmetric laxity was observed a 1-2 degree varus or valgus recut guide was used to fine tune the tibial resection until the laxity was 1 degree or less in full extension like the [place] knee. The following steps determined the optimal insert thickness within +/-1 mm. First I inserted an insert goniometer that matched the thickness of the spacer block. I reduced the patella and then with the knee in maximum extension, I verified the knee hyperextended a few degrees and had negligible varus valgus laxity, like the pre arthritic knee. Next, I measured the external tibial orientation which was the angle the insert goniometer intersected the sagittal line on the medial condyle of the femoral trial component. Then with the knee in 15-30 degrees flexion I verified a 3-4 mm gap in the lateral compartment and no gap in the medial compartment during a 2nd varus valgus laxity test. Next, I placed the knee in 90? of flexion and the foot resting on the operating table and measured the internal tibial orientation. I repeated the steps until I identified the insert thickness that provided the highest external tibia orientation in extension and the highest internal tibial orientation at 90? flexion without anterior lift-off of the insert from the tibial base plate. The insert with this thickness was implanted. I applied a posterior drawer test with the tibia distracted by gravity and verified no posterior subluxation of the tibia relative to the femur. The patella remained centered on the trochlea and tracked well throughout the entire arc of flexion and extension. I used pulse lavage to clean the bony surfaces of debris and dried bone. I cemented the tibial, femoral, and patellar components using 1 bag of methylmethacrylate with Gentamycin, then rechecked the stability at full extension, 15-30 degrees, and 90? flexion and verified jain of the entire arc of motion of the knee. The circulating nurse confirmed the sponge and needle counts were correct. I used pulse lavage to rinse the joint and wound. The extensor mechanism was closed with interrupted #1 Vicryl suture and #1 running Stratafix suture. The subcutaneous layer was closed with interrupted #1 Vicryl suture followed by 2-0 Stratafix and 3-0 Stratafix. Steri-Strips placed on the skin. Silver impregnated occlusive dressing applied to the wound. A light gauze wrap and Martin bandage were placed. The patient was transferred to the recovery room in stable condition. There were no complications. Implants Medacta GMK spheriKA Femoral component SpheriKA size 3+, tibial component size 3, vitamin-E flex insert, thickness 11mm, Anatomic patella implant size 1. Estimated Blood Loss 20 Drains No Pathology None sent Complications No immediate complications Condition Stable Disposition PACU [facility] Billing Surgery - Charge Forward: Surgery Billing
[2025-01-04] MEDS: ONDANSETRON INJ 4 MG/2 ML VIAL IV PUSH (12:53)
[2025-01-04] MEDS: fentaNYL CITRATE INJ (*CRX) 100 MCG/2 ML VIAL 25 MCG IV PUSH ×3 (13:07→13:18)
--- NOTE | 2025-01-04 14:26 | ADMGEN ---
This patient, Lisa Barroso, was admitted to 2 Medical Room 260-. Patient/family oriented to hospital policies and general routines including ID bracelet, bed and alarms, visiting hours, pain management, procedures, bathroom and other care routines, personal items, smoking policy, room service/diet, and visiting hours. Information on how to activate the Rapid Response Team has been discussed. Patient/Family are encouraged to report perceived risks to care and to ask questions if they do not understand what they are told or what they should do.
[2025-01-04] MEDS: SODIUM CHLORIDE 0.9% IV 1,000 ML 125 ML IV CONT (14:33)
[2025-01-04] MEDS: ACETAMINOPHEN 325 MG TABLET 650 MG PO ×2 (14:34→17:28)
[2025-01-04] MEDS: traMADol HCL (*CRX) 50 MG TABLET PO ×2 (14:34→21:07)
[2025-01-04] MEDS: metFORMIN HCL XR 500 MG TAB.SR.24H 2000 MG PO (17:28)
[2025-01-04] MEDS: predniSONE 5 MG TABLET PO (17:28)
[2025-01-04] MEDS: FAMOTIDINE 20 MG TABLET PO (21:06)
[2025-01-04] MEDS: SACUBITRIL/VALSARTAN 49-51 MG TABLET 1 TABLET PO (21:07)
[2025-01-04] MEDS: SENNA/DOCUSATE SODIUM TABLET 2 TAB PO (21:07)
[2025-01-04] MEDS: carvediloL 25 MG TABLET PO (21:07)
[2025-01-05] MEDS: ACETAMINOPHEN 325 MG TABLET 650 MG PO ×3 (00:55→12:20)
[2025-01-05] MEDS: ceFAZolin 2 GM/D5W 50 ML 2 GM/50 ML BAG IVPB ×2 (01:02→09:19)
[2025-01-05 06:52] VITALS: BP 114/53; PULSE 71; RESP 16; TEMP 36.4; O2SAT 99
[2025-01-05 08:00] VITALS: BP 126/55; PULSE 90; RESP 16; TEMP 36.6; O2SAT 100
[2025-01-05 08:43] LABS: Basophils Percent Auto 0.1 % (0.2-1.2); Hematocrit 32.1 % (37.0-47.0); Hemoglobin 10.1 g/dL (12.0-15.0); Immature Granulocyte Absolute 0.09 K/mm3 (0.00-0.031); Immature Granulocyte Percent A 0.6 % (0-0.5); Lymphocytes Absolute Auto 1.34 K/mm3 (0.9-3.2); Lymphocytes Percent Auto 8.5 % (18.3-44.2); Mean Corpuscular HGB Conc 31.5 g/dl (32-36); Mean Corpuscular Hemoglobin 31.9 pg (26-34); Mean Corpuscular Volume 101.3 fl (80-100); Mean Platelet Volume 10.4 fl (7.4-10.4); Monocytes Absolute Auto 1.4 K/mm3 (0.1-0.6); Monocytes Percent Auto 9.1 % (2.6-8.5); Neutrophils Absolute Auto 12.8 K/mm3 (1.3-6.7); Neutrophils Percent Auto 81.7 % (45.5-73.1); Platelet Count Result 248 k/mm3 (150-375); Red Blood Count 3.17 M/mm3 (4.2-5.4); White Blood Count 15.7 K/mm3 (4.5-10.0)
[2025-01-05] MEDS: traMADol HCL (*CRX) 50 MG TABLET PO (08:48)
[2025-01-05] MEDS: SENNA/DOCUSATE SODIUM TABLET 2 TAB PO (08:49)
[2025-01-05 08:50] VITALS: PULSE 71
[2025-01-05] MEDS: FAMOTIDINE 20 MG TABLET PO (08:50)
[2025-01-05] MEDS: SPIRONOLACTONE 12.5 MG TABLET PO (08:50)
[2025-01-05] MEDS: FUROSEMIDE 20 MG TABLET PO (08:50)
[2025-01-05] MEDS: carvediloL 25 MG TABLET PO (08:50)
[2025-01-05] MEDS: SACUBITRIL/VALSARTAN 49-51 MG TABLET 1 TABLET PO (08:51)
[2025-01-05] MEDS: ASPIRIN 81 MG ENTERIC TABLET PO (08:51)
[2025-01-05 08:52] LABS: Anion Gap 12 mmol/L (4-12); Blood Urea Nitrogen 24 mg/dL (7-17); Calcium 8.6 mg/dL (8.4-10.2); Carbon Dioxide 21 mmol/L (22-30); Chloride 104 mmol/L (98-107); Estimated CRCL calculation 36 ml/min; Estimated Glomerular Filt Rate 44; Glucose 175 mg/dL (65-110); Sodium 137 mmol/L (137-145)
[2025-01-05 11:30] VITALS: BP 121/74; PULSE 64; RESP 16; TEMP 36.6; O2SAT 98
== END 2025-01-05 13:15 | disposition home or self-care (01) ==
LOC: ANHSURGERY 11:36 → ANH2MED 14:16
PROVIDERS: Physician Assistant Surgical; PCP Family Medicine; Visit Provider Orthopaedic Surgery
PROC: (CPT 27447; principal; 2025-01-04 10:00)
DX: M17.11 Unilateral primary osteoarthritis, right knee (principal); M25.761 Osteophyte, right knee; E78.5 Hyperlipidemia, unspecified; I11.0 Hypertensive heart disease with heart failure; I50.9 Heart failure, unspecified; G47.33 Obstructive sleep apnea (adult) (pediatric); E11.69 Type 2 diabetes mellitus with other specified complication; I25.10 Atherosclerotic heart disease of native coronary artery without angina pectoris; E66.9 Obesity, unspecified; Z68.31 Body mass index [BMI] 31.0-31.9, adult; Z79.899 Other long term (current) drug therapy; Z79.02 Long term (current) use of antithrombotics/antiplatelets; Z79.82 Long term (current) use of aspirin; Z79.84 Long term (current) use of oral hypoglycemic drugs; Z79.52 Long term (current) use of systemic steroids; Z98.890 Other specified postprocedural states; Z95.5 Presence of coronary angioplasty implant and graft; Z95.1 Presence of aortocoronary bypass graft; Z82.49 Family history of ischemic heart disease and other diseases of the circulatory system
CPT/HCPCS: 27447; 36415; 73560; 80048; 82948; 85025; 86850; 86900; 86901; 97110; 97116; 97161; 97165; 97530; 97535; C1776; A9270; C1713; J0171; J0690; J1100; J1885; J2250; J2270; J2405; J2704; J2795; J3010; J7030; J7120; J7512

== ENCOUNTER 2025-05-23 10:28 | Outpatient (CLI) | payer MEDICARE, SELFPAY ==
--- NOTE | ~2025-05-23 | MM_ITS ---
EXAMINATION: screening [facility] BI w rachel INDICATION: Asymptomatic, referred for screening mammogram COMPARISON: 05/19/2024 through 06/15/2018 TECHNIQUE: Digital Breast Tomosynthesis CC, MLO views of Both breasts were obtained with computer-aided detection to assist in interpretation of the study. FINDINGS: There are scattered areas of fibroglandular density. There is a focal asymmetry in the inferior medial right breast at middle third. Benign-appearing calcifications scattered in both breast are unchanged. Elsewhere, there are no mammographic features of malignancy. IMPRESSION: 1. Right breast Focal asymmetry. 2. No evidence of malignancy in the Left breast. RECOMMENDATION: Right breast Diagnostic mammogram with true lateral, appropriate spot compression views and an ultrasound if needed. BI-RADS Category 0: Incomplete: Needs additional imaging evaluation. Reviewed, dictated and finalized at location B. IMPRESSION: 1. Right breast Focal asymmetry. 2. No evidence of malignancy in the Left breast. RECOMMENDATION: Right breast Diagnostic mammogram with true lateral, appropriate spot compressi on views and an ultrasound if needed. BI-RADS Category 0: Incomplete: Needs additional imaging evaluation.
== END 2025-05-23 10:29 | disposition home or self-care (01) ==
LOC: MICIMG 10:29
PROVIDERS: PCP Family Medicine; Visit Provider Family Medicine
DX: Z12.31 Encounter for screening mammogram for malignant neoplasm of breast (principal); R92.8 Other abnormal and inconclusive findings on diagnostic imaging of breast
CPT/HCPCS: 77063; 77067

== ENCOUNTER 2025-06-13 10:56 | Outpatient (CLI) | payer MEDICARE, SELFPAY ==
--- NOTE | ~2025-06-13 | DEXA_ITS ---
Bone Density Report Name: HEATHER IRWIN Age: 74 Sex: Female Ethnicity: White Date of : 1950 Indication: osteopenia; height loss; hysterectomy; Referring Provider: Rios Kline Study: Bone densitometry was performed. Exam Date: June 13, 2025 Accession number: [id number] Bone Density: Region BMD T-score Z-score Classification AP Spine(L1, L4) 0.845 -1.7 0.7 Osteopenia Femoral Neck (Left) 0.566 -2.5 -0.4 Osteoporosis Total Hip (Left) 0.868 -0.6 1.2 Normal Femoral Neck (Right) 0.629 -2.0 0.1 Osteopenia Total Hip (Right) 0.820 -1.0 0.8 Normal Total Hip Mean 0.844 -0.8 1.0 Normal World Health Organization criteria for BMD impression classify patients as: Normal (T-score at or above -1.0), Osteopenia (T-score between -1.0 and -2.5), or Osteoporosis (T-score at or below -2.5). 10-year Fracture Risk: FRAX not reported because: Some T-score for Spine Total or Hip Total or Femoral Neck at or below -2.5 Previous Exams: -- Region Exam Age BMD T-score BMD Change BMD Change Date g/cm2 vs Baseline vs Previous -- AP Spine (L1,L4) 06/13/2025 74 0.845 -1.7 2.5% 1.2% 07/23/2021 70 0.835 -1.8 1.3% 1.3% 06/15/2018 67 0.825 -1.9 Total Hip(Left) 06/13/2025 74 0.868 -0.6 -8.3%* -5.8%* 07/23/2021 70 0.922 -0.2 -2.6% -2.6% 06/15/2018 67 0.946 0.0 Total Hip(Right) 06/13/2025 74 0.820 -1.0 -13.1%* -9.0%* 07/23/2021 70 0.900 -0.3 -4.6%* -4.6%* 06/15/2018 67 0.944 0.0 -- *Denotes significance at 95% confidence level, LSC for AP Spine = 0.022 g/cm2, LSC for Total Hip = 0.027 g/cm2 Clinical Information Provided by Patient: Has the following medical conditions: Hysterectomy Patient maximum height was 63 Menopause Age: 31 No regular weight bearing exercise Does not regularly consume dairy products Drinks caffeinated beverages Onset of menses at age 11 Number of children 2 Impression: The patient has osteoporosis, based on the Left Femoral Neck T-score. The BMD for the Total Hip(Left) decreased, changing by -5.8% since the last DXA exam. The BMD for the Total Hip(Right) decreased, changing by -9.0% since the last DXA exam. Discussion: INCREASED RISK OF FRACTURE. BONE DENSITY IS UNDESIRABLY LOW AT ONE OR MORE SKELETAL SITES, CONSISTENT WITH POSTMENOPAUSAL OSTEOPOROSIS. This patient's lowest T-score meets the World Health Organization's (WHO) criteria for osteoporosis at one or more sites (T-score -2.5 or below). In untreated patients, the risk of osteoporotic fracture increases approximately two-fold for each 1.0 SD decrease in T-score. Low bone density is not the only risk factor for fracture; also consider factors such as patient's age, frailty or poor health, risk of falling, risk of injury, previous osteoporotic fracture, family history of osteoporosis, cigarette smoking, low body weight, etc. Not everyone with low bone mineral density has osteoporosis; osteomalacia and other metabolic bone disorders should also be considered. Patients who have osteoporosis should be evaluated for specific diseases and conditions (secondary causes) that may cause or contribute to bone loss. The [place] [employer] Endocrinologists (AACE) and National Osteoporosis Foundation (NOF) recommend pharmacologic intervention for all postmenopausal women whose T-score is in this range. The patient should follow a healthful lifestyle (good nutrition with adequate calcium and vitamin D, and appropriate weight-bearing exercise). Follow-Up: Consider a repeat BMD and Vertebral Fracture Assessment (VFA) exam in 2 years or sooner if medically necessary, to reassess this patient's status. Reported by: BERNADETTE on 06/13/2025 11:22:00 AM. Reviewed, dictated and finalized at location A.
== END 2025-06-13 10:57 | disposition home or self-care (01) ==
LOC: MICIMG 10:57
PROVIDERS: PCP Family Medicine; Visit Provider Family Medicine
DX: M81.0 Age-related osteoporosis without current pathological fracture (principal); M85.89 Other specified disorders of bone density and structure, multiple sites; Z78.0 Asymptomatic menopausal state
CPT/HCPCS: 77080

== ENCOUNTER 2025-06-21 08:41 | Outpatient (CLI) | payer MEDICARE, SELFPAY ==
--- NOTE | ~2025-06-21 | MMUS_ITS ---
EXAMINATION: MM diagnostic phong RT w rachel, US breast RT limited INDICATION: 74-year old female; BI-RADS 0, callback from screening to evaluate right breast focal asymmetry. COMPARISON: 05/23/2025 TECHNIQUE: Digital breast tomosynthesis True lateral and spot compression of the RIGHT breast were obtained with computer-aided detection to assist in interpretation of the study. MAMMOGRAM FINDINGS: There are scattered areas of fibroglandular density. The focal asymmetry of concern in the medial, at middle depth in the right breast persists as a mass with fat content. RIGHT BREAST ULTRASOUND FINDINGS: Targeted sonographic evaluation of the medial breast was completed. At 2:00, 3 cm from the nipple, corresponding to the mammographic finding there is a 1.5 x 2.5 x 0.8 cm hyperechoic circumscribed mass containing several cystic areas located within subcutaneous fat. This finding compatible with an area of fat necrosis. IMPRESSION: An hyperechoic 2.5 cm superficial mass compatible with area of fat necrosis correlates to mammographic focal asymmetry in the RIGHT breast. This lesion is best characterized as probably benign. Short-term follow-up recommended. Recommendations: 6 month follow-up right breast ultrasound dated BI-RADS 3, PROBABLY BENIGN Reviewed, dictated and finalized at location B. IMPRESSION: An hyperechoic 2.5 cm superficial mass compatible with area of fat necrosis cor relates to mammographic focal asymmetry in the RIGHT breast. This lesion is bes t characterized as probably benign. Short-term follow-up recommended. Recommendations: 6 month follow-up right breast ultrasound dated BI-RADS 3, PROBABLY BENIGN
== END 2025-06-21 08:42 | disposition home or self-care (01) ==
LOC: MICIMG 08:42
PROVIDERS: PCP Family Medicine; Visit Provider Physician Assistant
DX: R92.8 Other abnormal and inconclusive findings on diagnostic imaging of breast (principal)
CPT/HCPCS: 76642; 77061; 77065; G0279

== ENCOUNTER 2025-07-10 14:51 | Emergency (ER) | payer MEDICARE, SELFPAY ==
--- NOTE | 2025-07-10 14:53 | ED.GENADULT ---
HPI - General Adult General Chief complaint: Upper Respiratory Infection Stated complaint: Sore Throat/Cough Time Seen by Provider: 07/10/25 14:53 Source: patient Mode of arrival: ambulatory Limitations: no limitations History of Present Illness HPI narrative: 34-year-old female patient presents to [facility] with complaints of cold symptoms for the past 2-3 days. Denies any fevers body aches or chills but states she has had a runny nose, congestion and cough. Patient states she has been taking some NyQuil for her symptoms and slept well last night without any issues coughing. Denies any chest pain or shortness breath. Denies any abdominal pain nausea vomiting or diarrhea. 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 Patient does have history of cardiac bypass. Related Data Home Medications ?Medication ?Instructions ?Recorded ?Confirmed ?Last Taken ?Type rosuvastatin 5 mg tablet 10 mg PO DAILY 10/09/22 05/06/25 01/03/25 History aspirin 81 mg tablet,delayed 81 mg PO DAILY 02/05/23 05/06/25 12/29/24 History release (Adult Aspirin Regimen) carvedilol 25 mg tablet 25 mg PO Q12H 02/05/23 05/06/25 01/04/25 History sacubitril 49 mg-valsartan 51 mg 1 tablet PO BID 07/02/23 05/06/25 01/03/25 History tablet (Entresto) furosemide 40 mg tablet 20 mg PO DAILY 12/15/23 05/06/25 01/03/25 History spironolactone 25 mg tablet 12.5 mg PO EVERY OTHER DAY 12/15/23 05/06/25 01/03/25 History prednisolone acetate 1 %-bromfenac 1 drp ophthalmic (eye) DAILY 07/07/24 05/06/25 01/03/25 History 0.075 % eye drops,suspension acetaminophen 325 mg tablet 650 mg PO DAILY PRN pain 12/08/24 05/06/25 01/03/25 History (Tylenol) omega-3 fatty acids 2,500 mg PO DAILY 12/08/24 05/06/25 01/03/25 History Allergies Allergy/AdvReac Type Severity Reaction Status Date / Time hydrocodone AdvReac Mild Nausea and Verified 05/06/25 09:58 Vomiting Review of Systems Review of Systems: CONSTITUTIONAL: Denies fever, chills, or sweats. EYES: Denies visual changes, redness, or discharge. ENT: Positive rhinorrhea, congestion, sore throat, denies otalgia. CARDIOVASCULAR: Denies chest pain, palpitations, or edema. RESPIRATORY: positive cough or dyspnea. GASTROINTESTINAL: Denies abdominal pain, nausea, vomiting, or diarrhea. GENITOURINARY: Denies dysuria or hematuria. SKIN: Denies rash or itching. MUSCULOSKELETAL: Denies back pain, joint pain, or myalgia. NEUROLOGIC: Denies headache, numbness, or weakness. PSYCHIATRIC: Denies anxiety or depression. 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 History of stress test (~2020) Obesity CAD (coronary artery disease) Cough Fatty liver HLD (hyperlipidemia) HTN (hypertension), benign MEETA (obstructive sleep apnea) Surgical History Surgical History History of rotator cuff surgery right S/P coronary artery stent placement S/P CABG (coronary artery bypass graft) History of knee surgery (~2015) History of foot surgery (~2009) History of hernia surgery History of hysterectomy (~1981) Family History Family History Mother Diabetes mellitus Hypertension Family history of cardiovascular disease Acute myocardial infarction Father Family history of cardiovascular disease CHF (congestive heart failure) Social History Social History Smoking status: Never smoker Second hand tobacco smoke exposure: No Alcohol intake: never Substance use: never Substance use type: does not use Do You Feel Safe in your Home?: Yes Lack of Transportation: No Lack of Food: Never True Current Housing: I Have Housing Concerned About Future Housing: No Difficulty Paying Gas/Electric Bills: No Difficulty Paying for Meds: No Currently Unemployed: No Education: Bachelor's Degree Difficulty w/ Childcare or Family Care: No Living arrangements: with family Additional living arrangements comments: Occupation/Education: retired Gender identity (if verbalized by the patient): Female Sexual Orientation (if Verbalized by the Patient): Straight or Heterosexual Spiritual care concerns: No Comments At the time of my signature I agree with nursing past medical history, surgical, social, and family history. There is no relevant family history pertinent to the presenting complaint. Exam Narrative: GENERAL: Well-appearing, well-nourished, and in no acute distress. HEAD: Normocephalic, atraumatic. EYES: PERRLA and EOMI. ENT: Nares c with erythema edema noted bilaterally, clear rhinorrhea or epistaxis. Mucous membranes moist. posterior pharynx with erythema and 1 white patch noted to the right tonsil. Bilateral TMs are clear no erythema foreign bodies the canal. NECK: Supple. No lymphadenopathy CHEST: Clear to auscultation. No respiratory distress. HEART: Regular rate and rhythm. No murmur heard. Normal peripheral pulses. ABDOMEN: Soft, nontender, nondistended, normal active bowel sounds. EXTREMITIES: Normal range of motion. No edema. SKIN: Warm, dry, no rash. NEURO: No focal deficits. Alert and oriented x3. Course Course Level of Care: Express Care Visit Reevaluation(s) Reevaluation #1: Re-evaluated patient notified her that she has tested negative for her point of care testing for strep, influenza and COVID. Discussed with patient that we will send her strep swab to the lab for culture if it does come back positive for cough for strep we will send her an antibiotic at that time. Discussed with patient no antibiotics today this is most likely viral it will take anywhere from 10 days 2 weeks to get over. Discussed with patient that she can do some [id number] medications help with her symptoms including increasing her vitamin C taking vitamin-D and zinc as well as using hot tea and honey to help soothe the throat. She can also take [id number] NyQuil that she has been using however she needs to make sure that some of these can increase her blood sugar if she needs to be checking her blood sugar more often. Discussed with patient that I will give her a Medrol Dosepak to help with some of the coughing as per her request but again this can increase her blood sugars it is very important that she checks her blood sugar more often while she is on the medication. Discussed with patient if she does starts to run a fever or her symptoms worsen she needs to go to the ER for further evaluation. Date: 07/10/25 Time: 15:49 Vital Signs Vital signs: Vital Signs Temperature 36.8 C 07/10/25 15:01 Pulse Rate 86 07/10/25 15:01 Respiratory Rate 16 07/10/25 15:01 Blood Pressure 144/80 H 07/10/25 15:01 Pulse Oximetry 99 07/10/25 15:01 Oxygen Delivery Room Air 07/10/25 15:01 Temperature 36.8 C 07/10/25 15:01 Pulse Rate 86 07/10/25 15:01 Respiratory Rate 16 07/10/25 15:01 Blood Pressure 144/80 H 07/10/25 15:01 Pulse Oximetry 99 07/10/25 15:01 Oxygen Delivery Room Air 07/10/25 15:01 Vital signs reviewed. The patient has been informed that they may have pre-hypertension or Hypertension based on a BP reading in the department. I recommend that the patient call the primary care provider listed on their discharge instructions or a physician of their choice this week to arrange follow up for further evaluation of possible pre-hypertension or Hypertension Medical Decision Making MDM Narrative Medical decision making narrative: Plan care patient's test her today for COVID, influenza and strep throat. I will reassess her once this has resulted. Differential Diagnosis Differential Diagnosis: Differential diagnosis Allergic rhinitis, chronic sinusitis, tonsillitis, acute sinusitis, infectious mononucleosis, seasonal influenza, pertussis, diphtheria, meningococcal disease, viral syndrome, viral bronchitis, RSV, COVID-19 Vital Signs Vital Signs: Vital Signs Temperature 36.8 C 07/10/25 15:01 Pulse Rate 86 07/10/25 15:01 Respiratory Rate 16 07/10/25 15:01 Blood Pressure 144/80 H 07/10/25 15:01 Pulse Oximetry 99 07/10/25 15:01 Oxygen Delivery Room Air 07/10/25 15:01 Temperature 36.8 C 07/10/25 15:01 Pulse Rate 86 07/10/25 15:01 Respiratory Rate 16 07/10/25 15:01 Blood Pressure 144/80 H 07/10/25 15:01 Pulse Oximetry 99 07/10/25 15:01 Oxygen Delivery Room Air 07/10/25 15:01 Lab Data Labs: Lab Results 07/10/25 Range/Units 15:41 POC Influenza A Ag Negative (Negative) POC Influenza B Ag Negative (Negative) POC SARS CoV-2 Ag Negative (Negative) POC Grp A Strep Screen Negative (Negative) Critical Care Time Critical Care Time Critical Care Time: No Discharge Plan Discharge Clinical Impression: Viral URI with cough Patient Disposition: Home Condition: Stable Instructions: Antibiotic Form, Viral Syndrome (ED) Additional Instructions: Viral illness may last between 7-12days; antibiotic is NOT recommended at this time. increased vitamin-C intake and may take 2000 mg in the a.m. to 1000 mg in the p.m. to help decrease how long you have this virus. Ensure that you are taking vitamin-D at least 2000 IU daily. May also take zinc daily 40-50 mg for 4 or 5 days to decrease viral replication. May use hot tea with honey to help soothe the throat it is a natural anti-inflammatory natural cough suppressant. Please follow the directions on the Medrol Dosepak to help with coughing and sinusitis symptoms. Recommend antihistamine such as Benadryl at night time and Claritin/Zyrtec/Marnie during the day Cough syrup may cause drowsiness; avoid driving or take it at night time. Also, recommend symptomatic treatment includes: rest, fluids, and increase humidity of the air at home. Recommend Acetaminophen or nonsteroidal anti-inflammatory agents (NSAIDs) as directed in the bottle to reduce fever and/pain/headache. Avoid smoking/second-hand smoke. Limit visits to areas with large crowds. Please schedule a follow-up visit with your personal physician for further evaluation and treatment within 3-5days. Including recheck and discussion of your blood pressure. If your symptoms persist, change or worsen significantly before you can contact your personal physician then please, without delay, go to the emergency department for further evaluation. Patient Language: Malay Prescriptions: New methylprednisolone 4 mg tablets,dose pack See Rx Instructions PO .COMPLEX Qty: 21 0RF Rx Instructions: for 6 days No Action prednisolone acetate-bromfenac 1-0.075 % drops,suspension 1 drp ophthalmic (eye) DAILY carvedilol 25 mg tablet 25 mg PO Q12H Rx Instructions: must administer with a meal/food aspirin [Adult Aspirin Regimen] 81 mg tablet,delayed release (DR/EC) 81 mg PO DAILY Patient Comments: HOLD PREOP furosemide 40 mg tablet 20 mg PO DAILY spironolactone 25 mg tablet 12.5 mg PO EVERY OTHER DAY Entresto 49-51 mg tablet 1 tablet PO BID rosuvastatin 5 mg tablet 10 mg PO DAILY Patient Comments: TAKES AT HS clopidogrel 75 mg Tablet 75 mg PO QAM Qty: 30 0RF Patient Comments: HOLD PREOP for 7 days omega-3 fatty acids Capsule 2,500 mg PO DAILY acetaminophen [Tylenol] 325 mg tablet 650 mg PO DAILY PRN (Reason: pain) (DME) Blood Glucose Test Strip See Rx Instructions .ROUTE .MEDSUPPLY Qty: 100 3RF Rx Instructions: Use once daily to check blood sugar metformin 500 mg tablet extended release 24 hr See Rx Instructions .ROUTE .COMPLEX Qty: 400 2RF Dose Instruction: TAKE 4 TABLETS BY MOUTH IN THE EVENING Rx Instructions: TAKE 4 TABLETS BY MOUTH IN THE EVENING Follow-up/Referrals: Rios Kline MD [Primary Care Provider, Family Practice] Time of Disposition: 15:49
[2025-07-10 15:01] VITALS: BP 144/80; PULSE 86; RESP 16; TEMP 36.8; O2SAT 99
[2025-07-10 15:43] LABS: EDCOVIDSCREEN Negative (Negative); EDINFLUASCREEN Negative (Negative); EDINFLUBSCREEN Negative (Negative); EDSTREPNEGPOS1 Negative (Negative)
== END 2025-07-10 15:57 | disposition home or self-care (01) ==
PROVIDERS: Emergency Provider Nurse Practitioner Family; PCP Family Medicine
DX: J06.9 Acute upper respiratory infection, unspecified (principal); R05.9 Cough, unspecified; Z20.822 Contact with and (suspected) exposure to COVID-19; I11.0 Hypertensive heart disease with heart failure; I50.9 Heart failure, unspecified; E11.9 Type 2 diabetes mellitus without complications; I25.10 Atherosclerotic heart disease of native coronary artery without angina pectoris; E66.9 Obesity, unspecified; K76.0 Fatty (change of) liver, not elsewhere classified; E78.5 Hyperlipidemia, unspecified; Z95.5 Presence of coronary angioplasty implant and graft
CPT/HCPCS: 87081; 87426; 87804; 87880; 99213; G0463